=== PATIENT | female | born 1940 | race Caucasian/White ===

== ENCOUNTER 2017-12-25 18:20 | Emergency (ER) | payer OTHER, MEDICARE ==
[2017-12-25 19:35] LABS: Absolute Monocytes 0.5 K/uL (0.1-1.3); Absolute Neutrophil 3.1 K/uL (1.8-8.0); Eosinophils % 6.2 % (0-4.4); Hematocrit 34.5 % (36.0-45.0); Lymphocytes % 19.9 % (15.3-44.8); MCH 28.8 pg (27.0-35.0); MCV 86.7 fL (80-100); MPV 9.1 fL (7.6-11.3); Monocytes % 9.9 % (3.3-12.3); RBC Red Blood Cell Count 3.98 M/uL (3.86-4.86)
[2017-12-25 19:53] LABS: Albumin 3.8 g/dL (3.4-5.0); Bilirubin Direct 0.2 mg/dL (0-0.2); Bilirubin Total 0.9 mg/dL (0.2-1.0); CKMB Creatine Kinase MB 1.6 ng/mL (0.3-3.6); Magnesium 2.1 mg/dL (1.8-2.4); Potassium 3.6 mmol/L (3.5-5.1); Protein, Total 7.1 g/dL (6.4-8.2)
[2017-12-25 19:55] LABS: Protime INR 1.46
[2017-12-25] MEDS ORDERED: FUROSEMIDE 20 MG/ 2ML VIAL ONE (20:09)
--- NOTE | 2017-12-25 20:38 | RAD REPORT ---
EXAM DESCRIPTION: RAD - Chest Single View - 12/25/2017 7:05 pm CLINICAL HISTORY: Shortness of breath COMPARISON: August 02 TECHNIQUE: AP portable chest image was obtained 1853 hours . FINDINGS: No mass, consolidation or acute failure. Interstitial markings are prominent but not clear ly different. Heart size is normal. Vasculature is mildly prominent but stable. No significant failur e or volume overload. No measurable pleural effusion and no pneumothorax. No gross bony abnormality s een. No acute aortic findings suspected. IMPRESSION: No acute cardiopulmonary process. Chest findings are not significantly different from July.
[2017-12-25 20:42] LABS: Urine Blood NEGATIVE (NEG); Urine Glucose NEGATIVE (NEG); Urine Protein NEGATIVE (NEG)
--- NOTE | 2017-12-25 20:45 | RAD REPORT ---
EXAM DESCRIPTION: CT - Chest For Pe Angio - 12/25/2017 8:29 pm COMPARISON: None. TECHNIQUE: Dynamically enhanced 3 mm thick images of the chest were obtained during administration o f approximately 150mL Isovue 370 IV contrast. Coronal and oblique reconstruction images were generate d using MIP protocol and reviewed. Exam utilizes a protocol to evaluate the pulmonary arterial tree. All CT scans are performed using dose optimization technique as appropriate and may include automated exposure control or mA/KV adjustment according to patient size. FINDINGS: No pulmonary emboli are identified. The aorta as imaged shows no acute or suspicious finding. No pericardial thickening or effusion. No infiltrate or mass in the lung parenchyma. Trace right pleural effusion. No pneumothorax. No mediastinal or hilar suspicious masses. No chest wall masses or abnormal axillary lymphadenopathy. Anterior rib fracture changes are seen at the right fourth, fifth and sixth ribs near the costochondr al junction. Similar fracture changes are present at the anterior left third and fourth and fifth rib s. Fractures are probably subacute or even chronic. No pathologic component. Limited imaging of the upper abdomen shows a 5 centimeter left adrenal mass that shows predominantly fat attenuation with a attenuation value far below 0 HU. There is fullness of the right adrenal gland is largest 3 cm in size. This exam is not a complete assessment of abdominal structures or adrenal g lands. IMPRESSION: No pulmonary emboli identified. No infiltrate or mass. Patient has a trace right pleural effusion. Anterior rib fractures near the costochondral junction noted- on the right 4th-6th and left 3rd-5th r ibs. These appear subacute to old in age. Correlation can be made with any localizing symptoms. No pa thologic component. Large 5 centimeter fat attenuation adrenal mass very likely an adrenal adenoma.A 3 centimeter more so lid right adrenal mass is present. Adrenal masses are not fully characterized on this study.
[2017-12-25] MEDS ORDERED: ALBUTEROL 2.5 MG/3 ML NEB SOL ONE (21:13)
[2017-12-25] MEDS ORDERED: IPRATROPIUM BROM 0.5MG/2.5ML ONE (21:13)
--- NOTE | 2017-12-26 00:17 | ER ---
Nurse's Notes [facility] Name: Majo Causey Age: 77 yrs Sex: Female : 1940 Arrival Date: 12/25/2017 Time: 18:22 Bed 23 Private MD: Diagnosis: Dyspnea;Multiple fractures of ribs;Chronic pain syndrome Presentation: 12/25 18:32 Presenting complaint: Patient states: Difficulty breathing since this AM. Transition of aj care: patient was not received from another setting of care. Onset of symptoms was December 25, 2017. Risk Assessment: Do you want to hurt yourself or someone else? Patient reports no desire to harm self or others. Initial Sepsis Screen: Does the patient meet any 2 criteria? No. Patient's initial sepsis screen is negative. Does the patient have a suspected source of infection? No. Patient's initial sepsis screen is negative. Care prior to arrival: None. 18:32 Method Of Arrival: Wheelchair aj 18:32 Acuity: JAGRUTI 3 aj Triage Assessment: 18:36 General: Appears in no apparent distress. comfortable, Behavior is calm, cooperative, aj appropriate for age. Pain: Denies pain. Neuro: Level of Consciousness is awake, alert, obeys commands, Oriented to person, place, time, situation, Appropriate for age. Respiratory: Reports shortness of breath at rest on exertion Airway is patent Respiratory effort is even, unlabored, Respiratory pattern is regular, symmetrical, Onset: The symptoms/episode began/occurred today, the patient has mild shortness of breath. GI: No signs and/or symptoms were reported involving the gastrointestinal system. Derm: Skin is intact, is healthy with good turgor, Skin is pink, warm \T\ dry. normal. Historical: - Allergies: 18:36 No Known Allergies; aj - Home Meds: 18:36 aspirin 81 mg Oral TbEC 1 tab once daily [Active]; carvedilol 6.25 mg Oral tab 1 tab 2 aj times per day [Active]; digoxin 125 mcg Oral tab 1 tab once daily [Active]; duloxetine 60 mg Oral cpDR 1 cap once daily [Active]; Eliquis 5 mg Oral tab 1 tab 2 times per day [Active]; fentanyl 75 mcg/hr Topical pt72 1 patch every 72 hours [Active]; furosemide 40 mg Oral tab 1 tab once daily [Active]; gabapentin 300 mg Oral cap 1 cap 3 times per day [Active]; klorcon twice a day [Active]; lisinopril-hydrochlorothiazide 20-12.5 mg Oral tab 1 tab once daily [Active]; [place] 10-325 mg Oral tab 1 tab every 4 hours [Active]; ropinirole 0.5 mg Oral tab 1 tab twice a day [Active]; Senna Plus 8.6-50 mg Oral tab 2 tabs once daily [Active]; simvastatin 20 mg Oral tab 1 tab once daily [Active]; Synthroid 125 mcg Oral tab 1 tab once daily [Active]; Zofran (as hydrochloride) 4 mg Oral tab 1 tabs 3 times per day [Active]; - PMHx: 18:36 Arthritis; Atrial Fib; Chronic pain; Hypertension; aj - PSHx: 18:36 spinal surgery; Hysterectomy; aj - Immunization history:: Adult Immunizations up to date. - Social history:: Smoking status: Patient/guardian denies using tobacco. - Ebola Screening: : Patient negative for fever greater than or equal to 101.5 degrees Fahrenheit, and additional compatible Ebola Virus Disease symptoms Patient denies exposure to infectious person Patient denies travel to an Ebola-affected area in the 21 days before illness onset No symptoms or risks identified at this time. Screenin:35 Abuse screen: Denies threats or abuse. Nutritional screening: No deficits noted. tl3 Tuberculosis screening: No symptoms or risk factors identified. Fall Risk Fall in past 12 months (25 points). Assessment: 18:35 General: Appears in no apparent distress. well developed, well nourished, Behavior is tl3 calm, cooperative, flat. General: Reports fatigue for felt short of breath this am, pt states that when she feels that way she can usually pull her nares open to better get air. Pain: Denies pain. Neuro: Level of Consciousness is awake, alert, obeys commands, Oriented to person, place, time, situation, Appropriate for age. Cardiovascular: Heart tones S1 S2 Patient's skin is warm and dry. Rhythm is regular. Respiratory: Airway is patent Respiratory effort is even, unlabored, Respiratory pattern is regular, symmetrical, Breath sounds are clear bilaterally. GI: No signs and/or symptoms were reported involving the gastrointestinal system. : No signs and/or symptoms were reported regarding the genitourinary system. EENT: No signs and/or symptoms were reported regarding the EENT system. Derm: No signs and/or symptoms reported regarding the dermatologic system. Musculoskeletal: No signs and/or symptoms reported regarding the musculoskeletal system. 20:00 Reassessment: Patient appears in no apparent distress at this time. No changes from tl3 previously documented assessment. Patient and/or family updated on plan of care and expected duration. Pain level reassessed. Patient is alert, oriented x 3, equal unlabored respirations, skin warm/dry/pink. bedside commode provided for pt. 20:14 Reassessment: patient sent to CT scan. mg2 21:27 Reassessment: Patient appears in no apparent distress at this time. No changes from tl3 previously documented assessment. Patient and/or family updated on plan of care and expected duration. Pain level reassessed. Patient is alert, oriented x 3, equal unlabored respirations, skin warm/dry/pink. Marcos at bedside discussing POC with family. 22:13 Reassessment: Patient appears in no apparent distress at this time. No changes from tl3 previously documented assessment. Patient and/or family updated on plan of care and expected duration. Pain level reassessed. Patient is alert, oriented x 3, equal unlabored respirations, skin warm/dry/pink. pt and bed changed, pt unable to make it to the bedside commode. Dr Serrano \T\ bedside for assessment. 23:10 Reassessment: Patient appears in no apparent distress at this time. No changes from tl3 previously documented assessment. Patient and/or family updated on plan of care and expected duration. Pain level reassessed. Patient is alert, oriented x 3, equal unlabored respirations, skin warm/dry/pink. pt returned from CT, helped to bedside commode. 12/26 00:13 Reassessment: Patient appears in no apparent distress at this time. No changes from tl3 previously documented assessment. Patient and/or family updated on plan of care and expected duration. Pain level reassessed. Patient is alert, oriented x 3, equal unlabored respirations, skin warm/dry/pink. Vital Signs: 12/25 18:36 BP 154 / 88; Pulse 84; Resp 20; Pulse Ox 100% on R/A; Weight 74.84 kg; Height 5 ft. 3 aj in. (160.02 cm); 20:00 BP 150 / 83; Pulse 67; Resp 18; Pulse Ox 95% ; tl3 21:27 BP 136 / 92; Pulse 79; Resp 18; Pulse Ox 100% on Nebulizer Mask; tl3 22:35 BP 148 / 89; Pulse 74; Resp 18; Pulse Ox 100% ; tl3 12/26 00:13 BP 142 / 96; Pulse 82; Resp 18; Pulse Ox 100% on R/A; tl3 12/25 18:36 Body Mass Index 29.23 (74.84 kg, 160.02 cm) aj Vitals: 12/25 20:00 Cardiac Rhythm Assessment. tl3 ED Course: 18:22 Patient arrived in ED. mr 18:34 Triage completed. aj 18:34 Marcos Rivas PA is PHCP. [facility] 18:34 Jaxson Lassiter MD is Attending Physician. jm 18:35 Zainab Wakefield, JOSÉ MIGUEL is Primary Nurse. tl3 18:35 Patient has correct armband on for positive identification. Bed in low position. Call tl3 light in reach. Side rails up X2. Adult w/ patient. Pulse ox on. NIBP on. 18:35 No provider procedures requiring assistance completed. tl3 18:36 Arm band placed on right wrist. Patient placed in an exam room. aj 19:04 XRAY Chest (1 view) In Process Unspecified. EDMS 19:16 EKG done, by ED staff. tl3 19:27 Initial lab(s) drawn, by wi, sent to lab. Inserted saline lock: 22 gauge in right ks6 antecubital area, using aseptic technique. Blood collected. 19:50 Notified Nurse Practitioner and/or Physician Patient Service Specialist of a critical lab result(s), bb D-Dimer of 7[address] J. Rob CHANDLER notified. 20:29 CT Chest For PE Angio In Process Unspecified. EDMS 20:30 CT completed. Patient moved to CT via stretcher. Patient moved back from CT. cw1 22:37 Cricket Centeno MD is Attending Physician. [facility] 22:53 CT completed. Patient moved to CT via wheelchair. Patient moved back from CT. cw1 23:08 CT Head C Spine In Process Unspecified. EDMS 12/26 00:13 IV discontinued, intact, bleeding controlled, No redness/swelling at site. Pressure tl3 dressing applied. Administered Medications: 12/25 20:09 Drug: Lasix 20 mg Route: IVP; Site: right antecubital; mg2 21:08 Follow up: Response: No adverse reaction tl3 21:33 Drug: DuoNeb (3:1) (2.5 mg - 0.5 mg) 3 ml Route: Nebulizer; tl3 12/26 00:37 Follow up: Response: No adverse reaction tl3 Outcome: 00:13 Discharged to home via wheelchair. tl3 00:13 Condition: stable 00:13 Discharge instructions given to patient, family, Instructed on discharge instructions, follow up and referral plans. medication usage, Demonstrated understanding of instructions, follow-up care, medications. 00:17 Discharge ordered by . 00:38 Patient left the ED. tl3 Signatures: Dispatcher [employer] EDMS Yoly Martinez, RN RN Marcos Eugene PA PA jmm Rivera, Maria mr Lindsay Gomez, Crystal Metzger RN 1 Cricket Centeno MD MD gs Lowrey, Tammy, RN RN tl3 Sheldon Chen RN RN mg2 Frederic Cheung ks6
--- NOTE | 2017-12-26 00:18 | EDPHYS ---
Physician Documentation [facility] Name: Majo Causey Age: 77 yrs Sex: Female : 1940 Arrival Date: 12/25/2017 Time: 18:22 Bed 23 Private MD: ED Physician Cricket Centeno HPI: 12/25 18:49 This 77 yrs old Female presents to ER via Wheelchair with complaints of jmm Breathing Difficulty. 18:49 The patient has shortness of breath at rest. Onset: The symptoms/episode began/occurred jmm gradually, this morning. Duration: The symptoms are continuous. The patient's shortness of breath is aggravated by nothing, is alleviated by nothing. Associated signs and symptoms: Pertinent negatives: chest pain. This is a 77 year old female with a history of atrial fibrillation, chronic pain, fibromyalgia that presents to the ED with shortness of breath beginning earlier today. Patient states symptoms are no worsened with exertion. Patient denies chest pain. . Historical: - Allergies: 18:36 No Known Allergies; aj - Home Meds: 18:36 aspirin 81 mg Oral TbEC 1 tab once daily [Active]; carvedilol 6.25 mg Oral tab 1 tab 2 aj times per day [Active]; digoxin 125 mcg Oral tab 1 tab once daily [Active]; duloxetine 60 mg Oral cpDR 1 cap once daily [Active]; Eliquis 5 mg Oral tab 1 tab 2 times per day [Active]; fentanyl 75 mcg/hr Topical pt72 1 patch every 72 hours [Active]; furosemide 40 mg Oral tab 1 tab once daily [Active]; gabapentin 300 mg Oral cap 1 cap 3 times per day [Active]; klorcon twice a day [Active]; lisinopril-hydrochlorothiazide 20-12.5 mg Oral tab 1 tab once daily [Active]; [place] 10-325 mg Oral tab 1 tab every 4 hours [Active]; ropinirole 0.5 mg Oral tab 1 tab twice a day [Active]; Senna Plus 8.6-50 mg Oral tab 2 tabs once daily [Active]; simvastatin 20 mg Oral tab 1 tab once daily [Active]; Synthroid 125 mcg Oral tab 1 tab once daily [Active]; Zofran (as hydrochloride) 4 mg Oral tab 1 tabs 3 times per day [Active]; - PMHx: 18:36 Arthritis; Atrial Fib; Chronic pain; Hypertension; aj - PSHx: 18:36 spinal surgery; Hysterectomy; aj - Immunization history:: Adult Immunizations up to date. - Social history:: Smoking status: Patient/guardian denies using tobacco. - Ebola Screening: : Patient negative for fever greater than or equal to 101.5 degrees Fahrenheit, and additional compatible Ebola Virus Disease symptoms Patient denies exposure to infectious person Patient denies travel to an Ebola-affected area in the 21 days before illness onset No symptoms or risks identified at this time. ROS: 18:49 Constitutional: Negative for fever, chills, and weight loss, Eyes: Negative for injury, jmm pain, redness, and discharge, Cardiovascular: Negative for chest pain, palpitations, and edema. 18:49 Abdomen/GI: Negative for abdominal pain, nausea, vomiting, diarrhea, and constipation, Back: Negative for injury and pain, Neuro: Negative for headache, weakness, numbness, tingling, and seizure. 18:49 Respiratory: Positive for shortness of breath. 18:49 All other systems are negative. Exam: 18:49 Head/Face: atraumatic. Eyes: EOMI, no conjunctival erythema appreciated Chest/axilla: jmm Normal chest wall appearance and motion. 18:49 Constitutional: The patient appears in no acute distress, alert, awake. 18:49 Cardiovascular: Rate: normal, Rhythm: irregularly irregular, Pulses: no pulse deficits are appreciated. 18:49 Respiratory: the patient does not display signs of respiratory distress, Respirations: normal, Breath sounds: are clear throughout. 18:49 Musculoskeletal/extremity: ROM: intact in all extremities. 18:49 Musculoskeletal/extremity: No edema noted, full dorsalis pedis pulse. 18:49 Skin: Appearance: Color: normal in color. 18:49 Neuro: Orientation: is normal, Mentation: is normal, Memory: is normal. 18:49 Psych: Behavior/mood is pleasant, cooperative. Vital Signs: 18:36 BP 154 / 88; Pulse 84; Resp 20; Pulse Ox 100% on R/A; Weight 74.84 kg; Height 5 ft. 3 aj in. (160.02 cm); 20:00 BP 150 / 83; Pulse 67; Resp 18; Pulse Ox 95% ; tl3 21:27 BP 136 / 92; Pulse 79; Resp 18; Pulse Ox 100% on Nebulizer Mask; tl3 22:35 BP 148 / 89; Pulse 74; Resp 18; Pulse Ox 100% ; tl3 12/26 00:13 BP 142 / 96; Pulse 82; Resp 18; Pulse Ox 100% on R/A; tl3 12/25 18:36 Body Mass Index 29.23 (74.84 kg, 160.02 cm) aj MDM: 12/25 18:45 Patient medically screened. [facility] 21:32 Data reviewed: vital signs, nurses notes, lab test result(s), EKG, radiologic studies, [facility] CT scan. ED course: I discussed the patient with Dr. Serrano whom will visit with the patient in the ED. . 22:32 ED course: After evaluation of the patient by Dr. Serrano it was revealed the patient [facility] had fallen 1 week prior. The patient currently takes eliquis. Ct Brain imaging ordered. . 22:37 Transition of care: After a detail discussion of the patient's case, care is [facility] transferred to Cricket Centeno MD. 12/26 00:15 ED course: PT SEEN AND EXAMINED BETTER AFTER NEB, CT HEAD NAD, DISCUSSED WITH FAMILY AT gs LENGTH EXCESSIVE OPIATE USE CAUSING REPETITIVE FALLS WHILE BEING ON BLOOD THINNERS, SON WILL TAKE TO PCP TO DISCUSS. 12/25 18:46 Order name: Basic Metabolic Panel; Complete Time: 19:57 [facility] 12/25 18:46 Order name: CBC with Diff; Complete Time: 19:57 [facility] 12/25 18:46 Order name: Ckmb; Complete Time: 19:57 [facility] 12/25 18:46 Order name: CPK; Complete Time: 19:57 [facility] 12/25 18:46 Order name: LFT's; Complete Time: 19:57 [facility] 12/25 18:46 Order name: Magnesium; Complete Time: 19:57 [facility] 12/25 18:46 Order name: NT PRO-BNP; Complete Time: 19:57 [facility] 12/25 18:46 Order name: PT-INR; Complete Time: 20:02 [facility] 12/25 18:46 Order name: Ptt, Activated; Complete Time: 20:02 [facility] 12/25 18:46 Order name: Troponin (emerg Dept Use Only); Complete Time: 19:57 [facility] 12/25 18:46 Order name: XRAY Chest (1 view); Complete Time: 20:51 [facility] 12/25 19:13 Order name: D-Dimer; Complete Time: 19:57 [facility] 12/25 19:58 Order name: CT Chest For PE Angio; Complete Time: 20:51 [facility] 12/25 20:17 Order name: Urine Dipstick--Ancillary (enter results); Complete Time: 20:51 [facility] 12/25 18:46 Order name: EKG; Complete Time: 18:47 [facility] 12/25 18:46 Order name: Cardiac monitoring; Complete Time: 19:28 [facility] 12/25 18:46 Order name: EKG - Nurse/Tech; Complete Time: 19:28 [facility] 12/25 18:46 Order name: IV Saline Lock; Complete Time: 19:28 [facility] 12/25 18:46 Order name: Labs collected and sent; Complete Time: 19:28 [facility] 12/25 18:46 Order name: O2 Per Protocol; Complete Time: 19:28 [facility] 12/25 18:46 Order name: O2 Sat Monitoring; Complete Time: 19:28 [facility] 12/25 18:46 Order name: Urine Dipstick-Ancillary (obtain specimen); Complete Time: 20:13 [facility] 12/25 22:32 Order name: CT Head C Spine [facility] Administered Medications: 12/25 20:09 Drug: Lasix 20 mg Route: IVP; Site: right antecubital; mg2 21:08 Follow up: Response: No adverse reaction tl3 21:33 Drug: DuoNeb (3:1) (2.5 mg - 0.5 mg) 3 ml Route: Nebulizer; tl3 12/26 00:37 Follow up: Response: No adverse reaction tl3 Disposition: 00:15 Co-signature as Attending Physician, Cricket Centeno MD. Disposition: 12/26/17 00:17 Discharged to Home. Impression: Dyspnea, Multiple fractures of ribs, Chronic pain syndrome. - Condition is Stable. - Discharge Instructions: Shortness of Breath, [id number], Incentive Spirometer. - Medication Reconciliation Form, Thank You Letter, Antibiotic Education, Prescription Opioid Use form. - Follow up: Private Physician; When: 1 - 2 days; Reason: Re-evaluation by your physician. Signatures: Dispatcher [employer] EDMS Martinez, Yoly, RN RN aj Jaxson Lassiter MD MD cha Mickail, Joel, PA PA jmm Starr, Gregory, MD MD gs Lowrey, Tammy, RN RN tl3 Sheldon Chen RN RN mg2 Corrections: (The following items were deleted from the chart) 00:38 00:17 12/26/2017 00:17 Discharged to Home. Impression: Dyspnea; Multiple fractures of tl3 ribs; Chronic pain syndrome. Condition is Stable. Forms are Medication Reconciliation Form, Thank You Letter, Antibiotic Education, Prescription Opioid Use. Follow up: Private Physician; When: 1 - 2 days; Reason: Re-evaluation by your physician. gs
[2017-12-26 00:44] VITALS: O2SAT 100
[2017-12-26 00:46] VITALS: BP 142/96
--- NOTE | 2017-12-26 07:40 | EKG ---
Test Date: 2017-12-25 Test Time: 19:04:59 Photographer Still: NADIA MEASUREMENT RESULTS: Intervals: Rate: 76 SD: QRSD: 70 QT: 384 QTc: 432 [place]: P: SD: QRS: -12 T: 0 INTERPRETIVE STATEMENTS: Atrial fibrillation Nonspecific ST abnormality, probably digitalis effect Abnormal ECG Compared to ECG 08/02/2017 13:03:46 ST (T wave) deviation now present Myocardial infarct finding no longer present Electronically Signed On 12-26-17 07:39:04 CDT by Forrest Lema
--- NOTE | 2017-12-26 08:44 | RAD REPORT ---
EXAM DESCRIPTION: CT - [id number] - 12/26/2017 4:42 am CLINICAL HISTORY: Trauma, head and neck injury. fall, head injury COMPARISON: No comparisons TECHNIQUE: Axial 5 mm thick images of the head were obtained. Axial 2 mm thick images of the cervical spine were obtained with sagittal and coronal reconstruction images generated and reviewed. All CT scans are performed using dose optimization technique as appropriate and may include automated exposure control or mA/KV adjustment according to patient size. FINDINGS: CT HEAD WITHOUT CONTRAST: No acute hemorrhage, hydrocephalus or extra-axial collection is identified.Mild generalized brain atr ophy is present with mild periventricular and deep white matter chronic microvascular ischemic change s.No areas of brain edema or midline shift. The paranasal sinuses and mastoids are clear.The calvarium is intact. CT CERVICAL SPINE WITHOUT CONTRAST: No fracture or subluxation.Lower cervical degenerative changes are noted, most notable at C5-6.No pre vertebral soft tissues swelling is identified. IMPRESSION: No acute intracranial or cervical spine findings. Moderate lower cervical degenerative change.
== END 2017-12-26 00:38 | disposition home or self-care (01) ==
LOC: ER 18:20
DX: R06.00 Dyspnea, unspecified (principal); S22.49XA Multiple fractures of ribs, unspecified side, initial encounter for closed fracture; G89.4 Chronic pain syndrome; I10 Essential (primary) hypertension; X58.XXXA Exposure to other specified factors, initial encounter; Y93.9 Activity, unspecified; Y92.9 Unspecified place or not applicable; Y99.9 Unspecified external cause status
CPT/HCPCS: 36415; 70450; 71045; 71275; 72125; 80048; 80076; 81003; 82550; 82553; 83735; 83880; 84484; 85025; 85379; 85610; 85730; 93005; 94640; 96374; 99285; J1940; Q9967

== ENCOUNTER 2018-03-01 11:34 | Inpatient (IN) | payer OTHER, MEDICARE ==
[2018-03-01 12:02] LABS: Absolute Lymphocytes (CBC) 1.5 K/uL (0.7-4.9); Absolute Neutrophil 14.5 K/uL (1.8-8.0); Basophils % 0.3 % (0-1.3); Eosinophils % 2.7 % (0-4.4); Hematocrit 36.8 % (36.0-45.0); Lymphocytes % 8.6 % (15.3-44.8); MCV 85.2 fL (80-100); MPV 9.4 fL (7.6-11.3); Monocytes % 5.9 % (3.3-12.3); RBC Red Blood Cell Count 4.31 M/uL (3.86-4.86)
[2018-03-01 12:06] LABS: Protime INR 1.53
[2018-03-01 12:14] LABS: Potassium 3.3 mmol/L (3.5-5.1)
--- NOTE | 2018-03-01 12:49 | RAD REPORT ---
EXAM DESCRIPTION: RAD - Hip Left 2 View - 03/01/2018 12:34 pm CLINICAL HISTORY: Fall, left hip pain COMPARISON: None FINDINGS: AP pelvis, left hip and left femur - multiple projections. Subcapital fracture of the proximal left femur is seen with mild varus angulation. No dislocation is evident.
--- NOTE | 2018-03-01 12:56 | RAD REPORT ---
EXAM DESCRIPTION: RAD - Femur Left - 03/01/2018 12:34 pm CLINICAL HISTORY: Fall, left hip pain. COMPARISON: None FINDINGS: AP pelvis, left hip and left femur - multiple projections. Subcapital fracture of the proximal left femur is seen with mild varus angulation. No dislocation is evident.
--- NOTE | 2018-03-01 12:57 | RAD REPORT ---
EXAM DESCRIPTION: RAD - Pelvis - 03/01/2018 12:34 pm CLINICAL HISTORY: Fall, left hip pain. COMPARISON: None FINDINGS: AP pelvis, left hip and left femur - multiple projections. Subcapital fracture of the proximal left femur is seen with mild varus angulation. No dislocation is evident.
[2018-03-01] MEDS ORDERED: MORPHINE 4 MG/ML SYR ONE ×3 (13:02→14:11)
--- NOTE | 2018-03-01 13:10 | EDPHYS ---
Physician Documentation [facility] Name: Majo Causey Age: 77 yrs Sex: Female : 1940 Arrival Date: 03/01/2018 Time: 11:37 Bed 4 Private MD: ED Physician Leander Goodwin HPI: 03/01 11:38 This 77 yrs old Female presents to ER via Unassigned with complaints of Fall rn Injury. 11:38 Details of fall: The patient fell from an upright position. Onset: The symptoms/episode rn began/occurred just prior to arrival. Associated injuries: The patient sustained left hip. Severity of symptoms: At their worst the symptoms were moderate, in the emergency department the symptoms are unchanged. The patient has not experienced similar symptoms in the past. The patient has not recently seen a physician. Reports on back patio, fell backward, lost her balance, no LOC, only injury is left hip, unable to get up, 100mcg fentanyl per EMS. . Historical: - Allergies: 12:20 No Known Allergies; sg - PMHx: 12:20 Arthritis; Atrial Fib; Chronic pain; Hypertension; sg - PSHx: 12:20 spinal surgery; Hysterectomy; sg - Immunization history:: Adult Immunizations unknown. - Immunization history: Last tetanus immunization: - up to date. - Family history:: not pertinent. - Social history:: Smoking status: Patient/guardian denies using tobacco. - Ebola Screening: : No symptoms or risks identified at this time. - Hospitalizations: : No recent hospitalization is reported. ROS: 11:38 Constitutional: Negative for fever, chills, and weight loss, Eyes: Negative for injury, rn pain, redness, and discharge, Neck: Negative for injury, pain, and swelling, Cardiovascular: Negative for chest pain, palpitations, and edema, Respiratory: Negative for shortness of breath, cough, wheezing, and pleuritic chest pain, Abdomen/GI: Negative for abdominal pain, nausea, vomiting, diarrhea, and constipation, MS/Extremity: + left hip pain Skin: Negative for injury, rash, and discoloration, Neuro: Negative for headache, numbness, tingling, and seizure. Exam: 11:38 Constitutional: Thin female, legs flexed and appears uncomfortable Head/Face: rn Normocephalic, atraumatic. Eyes: Pupils equal round and reactive to light, extra-ocular motions intact. Lids and lashes normal. Conjunctiva and sclera are non-icteric and not injected. Cornea within normal limits. Periorbital areas with no swelling, redness, or edema. Neck: Trachea midline, no thyromegaly or masses palpated, and no cervical lymphadenopathy. Supple, full range of motion without nuchal rigidity, or vertebral point tenderness. No Meningismus. Cardiovascular: Regular rate and rhythm with a normal S1 and S2. No gallops, murmurs, or rubs. Normal PMI, no JVD. No pulse deficits. Respiratory: Lungs have equal breath sounds bilaterally, clear to auscultation and percussion. No rales, rhonchi or wheezes noted. No increased work of breathing, no retractions or nasal flaring. Abdomen/GI: Soft, non-tender, with normal bowel sounds. No distension or tympany. No guarding or rebound. No evidence of tenderness throughout. Back: No spinal tenderness. No costovertebral tenderness. Full range of motion. MS/ Extremity: Pulses equal, no cyanosis. + painful ROM left hip with bony tenderness, unable to straighten leg Neuro: Awake and alert, GCS 15, oriented to person, place, time, and situation. Cranial nerves II-XII grossly intact. Motor strength 5/5 in all extremities. Sensory grossly intact. Vital Signs: 11:40 BP 140 / 61; Pulse 86; Resp 14; Temp 98.7; Pulse Ox 100% on R/A; Pain 8/10; hb 12:20 BP 140 / 61; Pulse 86; Resp 19; Pulse Ox 100% on R/A; sg 13:30 BP 147 / 77; Pulse 83; Resp 17; Pulse Ox 100% on R/A; dh3 14:30 BP 157 / 63; Pulse 94; Resp 16; Pulse Ox 100% on R/A; dh3 Fred Coma Score: 13:30 Eye Response: spontaneous(4). Verbal Response: oriented(5). Motor Response: obeys sg commands(6). Total: 15. 14:30 Eye Response: spontaneous(4). Verbal Response: oriented(5). Motor Response: obeys sg commands(6). Total: 15. Trauma Score (Adult): 11:40 Eye Response: spontaneous(1); Verbal Response: oriented(1); Motor Response: obeys hb commands(2); Systolic BP: > 89 mm Hg(4); Respiratory Rate: 10 to 29 per min(4); [place] Score: 15; Trauma Score: 12 12:20 Eye Response: spontaneous(1); Verbal Response: oriented(1); Motor Response: obeys hb commands(2); Systolic BP: > 89 mm Hg(4); Respiratory Rate: 10 to 29 per min(4); [place] Score: 15; Trauma Score: 12 13:30 Eye Response: spontaneous(1); Verbal Response: oriented(1); Motor Response: obeys sg commands(2); Systolic BP: > 89 mm Hg(4); Respiratory Rate: 10 to 29 per min(4); [place] Score: 15; Trauma Score: 12 14:30 Eye Response: spontaneous(1); Verbal Response: oriented(1); Motor Response: obeys sg commands(2); Systolic BP: > 89 mm Hg(4); Respiratory Rate: 10 to 29 per min(4); Fred Score: 15; Trauma Score: 12 MDM: 11:37 Patient medically screened. rn 13:07 ED course: COnsulted Dr. Reynoso, will consult when admitted to hospitalist. . rn 03/01 11:38 Order name: CBC with Diff; Complete Time: 12:40 rn 03/01 11:38 Order name: Basic Metabolic Panel; Complete Time: 12:40 rn 03/01 11:38 Order name: PT-INR; Complete Time: 12:40 rn 03/01 11:38 Order name: Ptt, Activated; Complete Time: 12:40 rn 03/01 14:28 Order name: Urine Dipstick--Ancillary (enter results) bd 03/01 14:58 Order name: Urine Dipstick-Ancillary EDMS 03/01 11:38 Order name: IV Start; Complete Time: 12:59 rn 03/01 11:38 Order name: EKG; Complete Time: 11:39 rn 03/01 11:38 Order name: XRAY Pelvis; Complete Time: 13:02 rn 03/01 11:38 Order name: XRAY Hip LEFT 2 view; Complete Time: 12:56 rn 03/01 11:38 Order name: XRAY Femur LEFT; Complete Time: 13:02 rn 03/01 11:38 Order name: EKG - Nurse/Tech; Complete Time: 12:59 rn 03/01 11:38 Order name: NPO; Complete Time: 12:54 rn 03/01 14:01 Order name: Burton; Complete Time: 14:36 sg Administered Medications: 12:59 Drug: morphine 2 mg Route: IVP; Site: right antecubital; hb 13:25 Drug: morphine 2 mg Route: IVP; Site: right antecubital; hb 14:50 Drug: morphine 2 mg Route: IVP; Site: right antecubital; sg Disposition: 03/01/18 13:09 Hospitalization ordered by Yasmin Caro for Inpatient Admission. Preliminary diagnosis is Subcapital left femur fracture. - Bed requested for Telemetry/MedSurg (Inpatient). - Status is Inpatient Admission. sg - Condition is Stable. - Problem is new. - Symptoms have improved. UTI on Admission? No Signatures: Dispatcher [employer] EDMS Majo Rose Steven, RN RN sg Leander Goodwin MD MD rn Baxter, Heather, RN RN Corrections: (The following items were deleted from the chart) 14:20 13:09 Hospitalization Ordered by Yasmin Caro MD for Inpatient Admission. Preliminary bd diagnosis is Subcapital left femur fracture. Bed requested for Telemetry/MedSurg (Inpatient). Status is Inpatient Admission. Condition is Stable. Problem is new. Symptoms have improved. UTI on Admission? No. rn 15:19 14:20 03/01/2018 13:09 Hospitalization Ordered by Yasmin Caro MD for Inpatient sg Admission. Preliminary diagnosis is Subcapital left femur fracture. Bed requested for Telemetry/MedSurg (Inpatient). Status is Inpatient Admission. Condition is Stable. Problem is new. Symptoms have improved. UTI on Admission? No. bd
--- NOTE | 2018-03-01 13:10 | ER ---
Nurse's Notes [facility] Name: Majo Causey Age: 77 yrs Sex: Female : 1940 Arrival Date: 03/01/2018 Time: 11:37 Bed 4 Private MD: Diagnosis: Subcapital left femur fracture Presentation: 03/01 11:37 Presenting complaint: EMS states: Mechanical fall from standing while on back porch, hb c/o left hip pain 03/15. Limited ROM in left hip. 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 Care prior to arrival: Medication(s) given: Fentanyl 100mcg IV initiated. 20 GA, in the left forearm. Mechanism of Injury: Fall from standing position. Trauma event details: Injury occurred in the [facility], Injury occurred: at home. Injury occurred: March 01, 2018. 11:37 Acuity: JAGRUTI 2 hb 11:37 Method Of Arrival: EMS: [facility] hb 11:45 Transition of care: patient was not received from another setting of care. Onset of hb symptoms was March 01, 2018. Risk Assessment: Do you want to hurt yourself or someone else? Patient reports no desire to harm self or others. Initial Sepsis Screen: Does the patient meet any 2 criteria? No. Patient's initial sepsis screen is negative. Does the patient have a suspected source of infection? No. Patient's initial sepsis screen is negative. Trauma Activation: Alert Physician: ED Physician; Name: Dr. Goodwin; Notified At: 11:37; Arrived At: 11:37 Physician: General Surgeon; Name: ; Notified At: 11:37; Arrived At: Physician: Radiology; Name: ; Notified At: 11:37; Arrived At: Physician: Respiratory; Name: ; Notified At: 11:37; Arrived At: Physician: Lab; Name: ; Notified At: 11:37; Arrived At: Historical: - Allergies: 12:20 No Known Allergies; sg - PMHx: 12:20 Arthritis; Atrial Fib; Chronic pain; Hypertension; sg - PSHx: 12:20 spinal surgery; Hysterectomy; sg - Immunization history:: Adult Immunizations unknown. - Immunization history: Last tetanus immunization: - up to date. - Family history:: not pertinent. - Social history:: Smoking status: Patient/guardian denies using tobacco. - Ebola Screening: : No symptoms or risks identified at this time. - Hospitalizations: : No recent hospitalization is reported. Screenin:21 Abuse screen: Denies threats or abuse. Denies injuries from another. Nutritional sg screening: No deficits noted. Tuberculosis screening: No symptoms or risk factors identified. Never had TB. Fall Risk None identified. Primary Survey: 11:38 A: Airway: patent, No supplemental oxygen in use on arrival. Oral cavity: clear, hb Trachea midline. Breathing/Chest: Respiratory pattern: regular, Respiratory effort: spontaneous, unlabored, Breath sounds: clear, bilaterally. Chest inspection: symmetrical rise and fall of the chest. Circulation: Pulses: palpable . Skin color: pink, Skin temperature: warm, dry. Disability Alert. 12:30 Reassessment Airway Airway Patent Breathing/Chest Respiratory pattern Regular hb Respiratory effort Spontaneous Unlabored Breath sounds Clear Chest inspection Symmetrical Circulation Pulses Palpable Color [place] Temperature Warm Dry Disability Alert. Secondary Survey: 11:40 HEENT: No deficits noted. Gastrointestinal: No deficits noted. : No deficits noted. hb Musculoskeletal: Range of motion: limited in left hip. Assessment: 11:47 General: Appears in no apparent distress. uncomfortable, Behavior is calm, cooperative. hb Pain: Pain currently is 8 out of 10 on a pain scale. Neuro: Level of Consciousness is awake, alert, obeys commands, Oriented to person, place, time, situation. Cardiovascular: Heart tones S1 S2 present Capillary refill < 3 seconds Patient's skin is warm and dry. Respiratory: Airway is patent Trachea midline Respiratory effort is even, unlabored, Respiratory pattern is regular, symmetrical, Breath sounds are clear bilaterally. GI: No signs and/or symptoms were reported involving the gastrointestinal system. : No signs and/or symptoms were reported regarding the genitourinary system. EENT: No signs and/or symptoms were reported regarding the EENT system. Derm: No signs and/or symptoms reported regarding the dermatologic system. Skin is pink, warm \T\ dry. Musculoskeletal: Range of motion: limited in left hip. 12:19 Reassessment: xray at bedside at this time. sg 12:20 Reassessment: Patient appears in no apparent distress at this time. No changes from hb previously documented assessment. Patient and/or family updated on plan of care and expected duration. Pain level reassessed. Patient is alert, oriented x 3, equal unlabored respirations, skin warm/dry/pink. 12:55 Reassessment: Pt c/o pain 03/15, Dr. Goodwin notified morphine 2mg ivp administered as hb ordered. VSS. Family remains at bedside. 13:25 Reassessment: Pt c/o pain 03/15, Christa Linda notified, repeat morphine administered as hb ordered. 14:30 Reassessment: Patient appears in no apparent distress at this time. Patient and/or sg family updated on plan of care and expected duration. Pain level reassessed. Patient is alert, oriented x 3, equal unlabored respirations, skin warm/dry/pink. pt reports no change in pain, orders received to repeat morphine as administered, pt medicated, see EMAR. pt awaiting a bed assignment at this time, will continue to monitor Patient states symptoms have not improved. Vital Signs: 11:40 BP 140 / 61; Pulse 86; Resp 14; Temp 98.7; Pulse Ox 100% on R/A; Pain 8/10; hb 12:20 BP 140 / 61; Pulse 86; Resp 19; Pulse Ox 100% on R/A; sg 13:30 BP 147 / 77; Pulse 83; Resp 17; Pulse Ox 100% on R/A; dh3 14:30 BP 157 / 63; Pulse 94; Resp 16; Pulse Ox 100% on R/A; dh3 [place] Coma Score: 13:30 Eye Response: spontaneous(4). Verbal Response: oriented(5). Motor Response: obeys sg commands(6). Total: 15. 14:30 Eye Response: spontaneous(4). Verbal Response: oriented(5). Motor Response: obeys sg commands(6). Total: 15. Trauma Score (Adult): 11:40 Eye Response: spontaneous(1); Verbal Response: oriented(1); Motor Response: obeys hb commands(2); Systolic BP: > 89 mm Hg(4); Respiratory Rate: 10 to 29 per min(4); Fred Score: 15; Trauma Score: 12 12:20 Eye Response: spontaneous(1); Verbal Response: oriented(1); Motor Response: obeys hb commands(2); Systolic BP: > 89 mm Hg(4); Respiratory Rate: 10 to 29 per min(4); [place] Score: 15; Trauma Score: 12 13:30 Eye Response: spontaneous(1); Verbal Response: oriented(1); Motor Response: obeys sg commands(2); Systolic BP: > 89 mm Hg(4); Respiratory Rate: 10 to 29 per min(4); [place] Score: 15; Trauma Score: 12 14:30 Eye Response: spontaneous(1); Verbal Response: oriented(1); Motor Response: obeys sg commands(2); Systolic BP: > 89 mm Hg(4); Respiratory Rate: 10 to 29 per min(4); [place] Score: 15; Trauma Score: 12 ED Course: 11:37 Patient arrived in ED. hb 11:37 Leander Goodwin MD is Attending Physician. rn 11:40 Triage completed. hb 11:45 Arm band placed on right wrist. hb 12:00 Thermoregulation: warm blanket given to patient. hb 12:00 Patient maintains SpO2 saturation greater than 95% on room air. sg 12:03 Shayne Melendez, RN is Primary Nurse. sg 12:04 Initial lab(s) drawn, by nv, sent to lab. Inserted saline lock: 20 gauge in right sg antecubital area, using aseptic technique. Blood collected. 12:05 Patient has correct armband on for positive identification. Bed in low position. Call sg light in reach. Side rails up X2. equipment monitor phototypesetting on. Pulse ox on. NIBP on. Warm blanket given. Head of bed elevated. Bath given. Cleaned of incontinence. Linen changed. 12:18 Awaiting radiology results. sg 12:34 XRAY Pelvis In Process Unspecified. EDMS 12:34 XRAY Hip LEFT 2 view In Process Unspecified. EDMS 12:34 XRAY Femur LEFT In Process Unspecified. EDMS 12:39 EKG done, by sonography technologist. reviewed by Leander Goodwin MD. at1 13:08 Yasmin Caro MD is Hospitalizing Provider. rn 14:20 Burton cath inserted, using sterile technique, 18 Fr., by resort desk clerk, balloon inflated, to sg gravity drainage, urine specimen collected. returned clear yellow urine. Patient tolerated well. 14:54 No provider procedures requiring assistance completed. Patient admitted, IV remains in sg place. intact, No redness/swelling at site. Administered Medications: 12:59 Drug: morphine 2 mg Route: IVP; Site: right antecubital; hb 13:25 Drug: morphine 2 mg Route: IVP; Site: right antecubital; hb 14:50 Drug: morphine 2 mg Route: IVP; Site: right antecubital; sg Output: 14:30 Urine: 250ml (Burton); Total: 250ml. sg Outcome: 13:09 Decision to Hospitalize by Provider. rn 14:53 Admitted to Med/surg accompanied by tech, family with patient, via stretcher, room 208, sg with chart, Report called to Calos VALDEZ 14:53 Condition: stable 14:53 Instructed on the need for admit, safety practices, Demonstrated understanding of instructions. 15:10 Patient's length of stay in the Emergency Department was greater than 2 hours. sg Patient's length of stay was extended due to staffing issues within the emergency department. 15:19 Patient left the ED. sg Signatures: Dispatcher [employer] EDMS Shayne Melendez RN JOSÉ MIGUEL Leander Goodwin MD MD rn Gonzales, Amanda, securities and real estate director EKG Tat1 Audrey Ren RN RN Clayton, Althea 3
--- NOTE | 2018-03-01 13:29 | EKG ---
Test Date: 2018-03-01 Test Time: 12:37:55 Podiatric Surgeon: SAMANTHA MEASUREMENT RESULTS: Intervals: Rate: 80 ME: QRSD: 76 QT: 400 QTc: 461 [place]: P: ME: QRS: 42 T: 59 INTERPRETIVE STATEMENTS: Atrial fibrillation Prolonged QT Abnormal ECG Compared to ECG 12/25/2017 19:04:59 Prolonged QT interval now present ST (T wave) deviation no longer present Electronically Signed On 03-01-18 13:29:00 CDT by Forrest Lema
--- NOTE | 2018-03-01 14:48 | P.HP ---
Certification for Inpatient Patient admitted to: Inpatient With expected LOS: >2 Midnights Patient will require the following post-hospital care: None Practitioner: I am a practitioner with admitting privileges, knowledge of patient current condition, hospital course, and medical plan of care. Services: Services provided to patient in accordance with Admission requirements found in Title 42 Section 412.3 of the Code of Federal Regulations Patient History Date of Service: 03/01/18 Primary Care Provider: Unknown Reason for admission: Fall History of Present Illness: 77 y/o F with NF2, afib and HTN presented to the ER after having Mechanical Fall at the house. Pt was doing well overall and than while on the porch today, she slipped and landed on her left side. She was not able to get up from the groung and had to call family and ems to bring her to the hospital. Pt denies having any CP, SOB, Chillis, Fever, N/V and abd pain. No complains to offer In the ER pt was found to have Left hip fracture and was admitted for further care. Allergies No Known Allergies Allergy (Verified 03/01/18 15:21) Home Medications: Gabapentin [Neurontin*] 300 mg PO TID 08/02/17 Hydrocodone Bit/Acetaminophen [Hydrocodon-Acetaminophn 10-325] 1 each PO Q4H PRN 08/02/17 Levothyroxine [Synthroid*] 125 mcg PO BEDTIME 08/02/17 Ropinirole HCl [Requip] 0.5 mg PO TID 08/02/17 Furosemide 40 mg PO DAILY #30 tablet 08/05/17 Apixaban [Eliquis] 5 mg PO BID 03/01/18 Aspirin 81 mg PO BEDTIME 03/01/18 Carvedilol 6.25 mg PO BID 03/01/18 Docusate/Senna [Senokot-S] 1 tab PO BIDP PRN 03/01/18 Duloxetine HCl [Cymbalta] 30 mg PO DAILY 03/01/18 Lisinopril/Hydrochlorothiazide [Lisinopril-Hctz 20-12.5 mg Tab] 1 each PO DAILY 03/01/18 Potassium Chloride 10 meq PO BEDTIME 03/01/18 - Past Medical/Surgical History Diabetic: No -: Atrial Fibrillation -: HTN -: arthritis -: chronic pain -: hysterectomy -: spinal surgery - Social History Alcohol use: No CD- Drugs: No Caffeine use: No Review of Systems 10-point ROS is otherwise unremarkable Physical Examination - Physical Exam General: Alert, In no apparent distress, Other (Neurofibromatosis noted ) HEENT: Atraumatic, PERRLA, Mucous membr. moist/pink, EOMI, Sclerae nonicteric Neck: Supple, 2+ carotid pulse no bruit, No LAD, Without JVD or thyroid abnormality Respiratory: Clear to auscultation bilaterally, Normal air movement Cardiovascular: Regular rate/rhythm, Normal S1 S2 Gastrointestinal: Normal bowel sounds, No tenderness Musculoskeletal: Tenderness Integumentary: No rashes Neurological: Normal speech, Abnormal strength, Abnormal tone, Abnormal sensation Lymphatics: No axilla or inguinal lymphadenopathy - Studies Laboratory Data (last 24 hrs) 03/01/18 11:44: PT 18.1 H, INR 1.53, APTT 31.0 03/01/18 11:44: Sodium 138, Potassium 3.3 L, BUN 15, Creatinine 0.90, Glucose 174 H 03/01/18 11:44: WBC 17.6 H, Hgb 12.5, Hct 36.8, Plt Count 172 Assessment and Plan - Problems (Diagnosis) (1) Fall Current Visit: Yes Status: Acute Plan: S/p mechanical Fall -PT consulted. awaiting reccs -Fall precaution given Qualifiers: Encounter type: initial encounter Qualified Code(s): W19.XXXA - Unspecified fall, initial encounter (2) Hip fracture, left Current Visit: Yes Status: Acute Plan: Closed Left Hip fracture s.p Fall -Ortho consulted. Awaiting reccs -NPO for now -Cardiac Clearance with h.ila degroot on eliquis Qualifiers: Encounter type: initial encounter Fracture type: closed Qualified Code(s) : S72.002A - Fracture of unspecified part of neck of left femur, initial encounter for closed fracture (3) Atrial fibrillation Onset Date: 08/03/17 Current Visit: No Status: Chronic Plan: Hold eliquis at this time -Cardiology consulted for Surgical Clearance and holding elquis Qualifiers: Atrial fibrillation type: chronic Qualified Code(s): I48.2 - Chronic atrial fibrillation (4) Chronic pain Onset Date: 08/03/17 Current Visit: No Status: Chronic Qualifiers: Chronic pain type: chronic pain syndrome Qualified Code(s): G89.4 - Chronic pain syndrome (5) Hypertension Current Visit: No Status: Chronic Qualifiers: Hypertension type: essential hypertension Qualified Code(s): I10 - Essential (primary) hypertension (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
[2018-03-01 14:58] LABS: Urine Blood TRACE (NEG); Urine Glucose NEGATIVE (NEG); Urine Protein NEGATIVE (NEG)
[2018-03-01] MEDS ORDERED: ONDANSETRON 4 MG/2 ML VIAL IV PRN (16:01)
[2018-03-01] MEDS ORDERED: ACETAMINOPHEN 500 MG TAB PO PRN (16:01)
[2018-03-01 16:49] LABS: Protime INR 1.38
[2018-03-01] MEDS: MORPHINE 2 MG/ML SYR IV PRN ×2 (17:03→22:21)
[2018-03-01] MEDS: NA CHLORIDE 0.9% 1,000 ML IV SCH ×2 (17:09→20:50)
[2018-03-01] MEDS ORDERED: INFLUENZA VACCINE (for 3y+) 0.5 ML DOSE IMVAC ONE (20:00)
[2018-03-01] MEDS: GABAPENTIN 300 MG CAP PO SCH (20:51)
[2018-03-01] MEDS: CARVEDILOL 6.25 MG TAB PO SCH (20:51)
[2018-03-01] MEDS: ROPINIROLE HCL 0.25 MG TAB PO SCH (20:51)
[2018-03-01] MEDS: HYDROCODONE/APAP 10/325 TAB PO PRN (20:52)
[2018-03-01] MEDS ORDERED: HOME MED 1 EA UNK (Ropinirole Hcl [Requip] 0.5 MG) PO SCH (21:00)
[2018-03-01] MEDS ORDERED: HYDROMORPHONE HCL 1 MG/ML INJ IV ONE (23:26)
[2018-03-01 23:29] LABS: Urine Appearance CLOUDY; Urine Bilirubin NEGATIVE (NEG); Urine Blood 3+ (NEG); Urine Color YELLOW; Urine Glucose NEGATIVE (NEG); Urine Protein 2+ (NEG); Urine Urobilinogen 0.2 mg/dL (0.2-1.0); Urine pH 6.5 (5.0-7.0)
[2018-03-02 00:18] LABS: Urine Microscopic Reflex ORDER UMIC
[2018-03-02 01:11] LABS: Urine Bacteria <20 /HPF (<20); Urine RBC 20-50 /HPF (NONE SEEN)
[2018-03-02 01:12] LABS: Urine Culture Reflex Order REFLEXED
[2018-03-02] MEDS: MORPHINE 2 MG/ML SYR IV PRN (03:08)
[2018-03-02] MEDS ORDERED: MORPHINE 4 MG/ML SYR ONE (03:09)
--- NOTE | 2018-03-02 04:06 | CON ---
Consultation is requested by Yasmin Caro M.D., regarding subcapital left femur fracture. History Of Present Illness: This 77-year-old female was brought to the emergency room via ambulance after she fell on her back porch and sat down hard with immediate pain and deformity of her left hip. The patient on admission had x-ray, showed a displaced subcapital fracture of the left femoral neck . She has been admitted to bedrest and planned treatment for the left hip fracture. Allergies: THE PATIENT HAS NO KNOWN ALLERGIES. Past Medical History: Positive for arthritis, atrial fibrillation, chronic pain, hypertension. Past Surgical History: Spinal surgery and hysterectomy. Social History: Tobacco use is denied. Physical Examination: General: The patient has no severe distress while resting in her room in bed. Vital Signs: Stable. HEENT: Within normal limits. Neck: Supple. Chest: Clear to auscultation. Heart: Has a regular rate and rhythm. Abdomen: Soft and nontender. Active bowel sounds are present. Genital: Deferred. Rectal: Deferred. Medications: The patient's medications were reviewed, and she was taking 5 mg of Eliquis b.i.d. as a nticoagulation therapy for her diagnosis of atrial fibrillation. The patient's home medications include [place] 10/325 one p.o. q.4 hours and fentanyl 75 mcg/hour topic al patch to be applied q.72 hours. Laboratory Data: Lab work indicates her pro-time is 18.1 with an INR of 1.53. Hemoglobin is 12.5 an d hematocrit is 36.8. The patient's potassium is slightly low at 3.3. White blood cell count is 17. 6 with 83% neutrophils. On review of x-ray, there is a displaced femoral neck fracture that will require a prosthesis to be i nserted. A cemented unipolar prosthesis is planned. The patient will be given a 24- to 36-hour tirnidad od on normalization of pro-time and INR after discontinuing Eliquis tablets. The patient will be get ting medical clearance. She may have dinner or food this evening. Plan will be for surgery on DEEPTHI/OBDULIA Voice ID: [id number] Report ID: [id number]
[2018-03-02 05:13] LABS: Absolute Lymphocytes (CBC) 1.2 K/uL (0.7-4.9); Absolute Monocytes 0.6 K/uL (0.1-1.3); Absolute Neutrophil 6.3 K/uL (1.8-8.0); Basophils % 0.2 % (0-1.3); Eosinophils % 1.8 % (0-4.4); Hematocrit 33.6 % (36.0-45.0); Lymphocytes % 14.8 % (15.3-44.8); MCH 29.4 pg (27.0-35.0); MCV 85.8 fL (80-100); MPV 9.9 fL (7.6-11.3); Monocytes % 7.7 % (3.3-12.3); RBC Red Blood Cell Count 3.92 M/uL (3.86-4.86)
[2018-03-02 05:38] LABS: Phosphorus 2.8 mg/dL (2.5-4.9); Potassium 3.3 mmol/L (3.5-5.1); Protein, Total 5.8 g/dL (6.4-8.2)
[2018-03-02] MEDS: HYDROCODONE/APAP 10/325 TAB PO PRN ×2 (06:04→19:57)
[2018-03-02] MEDS: LEVOTHYROXINE SOD 0.125 MG TAB PO SCH (06:04)
[2018-03-02] MEDS: KCL 20 MEQ/100 mL IVPB 20 MEQ/100 ML BAG IV SCH ×2 (06:04→09:44)
[2018-03-02] MEDS ORDERED: PNEUMOCOCCAL VACCINE 0.5 ML IMVAC ONE (08:00)
[2018-03-02] MEDS ORDERED: FUROSEMIDE 40 MG TABLET PO SCH (09:00)
[2018-03-02] MEDS ORDERED: HOME MED 1 EA UNK (Lisinopril/Hydrochlorothiazide [Lisinopril-Hctz 20-12.5 Mg Tab] 1 EACH) PO SCH (09:00)
[2018-03-02] MEDS: LISINOPRIL 20 MG TAB PO SCH (09:44)
[2018-03-02] MEDS: DULOXETINE 30 MG CAP PO SCH (09:44)
[2018-03-02] MEDS: GABAPENTIN 300 MG CAP PO SCH ×3 (09:45→21:13)
[2018-03-02] MEDS: ROPINIROLE HCL 0.25 MG TAB PO SCH ×3 (09:45→21:14)
[2018-03-02] MEDS: CARVEDILOL 6.25 MG TAB PO SCH ×2 (09:45→21:14)
[2018-03-02] MEDS: hydroCHLOROthiazide 12.5 MG CAP PO SCH (09:46)
[2018-03-02] MEDS: MORPHINE 4 MG/ML SYR IV PRN ×4 (09:57→23:16)
--- NOTE | 2018-03-02 10:28 | RAD REPORT ---
EXAM DESCRIPTION: RAD - Chest Single View - 03/02/2018 10:14 am CLINICAL HISTORY: Pneumonia COMPARISON: December 25 TECHNIQUE: AP portable chest image was obtained 1001 hours . FINDINGS: No peripheral mass or consolidation seen. No failure finding seen. Patient does have chron ic interstitial lung disease matching the December 25 study. Heart and vasculature are normal. No measu rable pleural effusion and no pneumothorax. No gross bony abnormality seen. No acute aortic findings suspected. IMPRESSION: No acute cardiopulmonary process. Chronic interstitial lung disease similar to December comparison.
[2018-03-02] MEDS: NA CHLORIDE 0.9% 1,000 ML IV SCH ×2 (11:35→23:15)
--- NOTE | 2018-03-02 12:03 | P.PN ---
Subjective Date of Service: 03/02/18 Primary Care Provider: Unknown Chief Complaint: Fall Patient seen and examined at bedside with RN. Chart reviewed. Case discussed with orthopedic surgeon. No complaints to offer overnight. Is this morning has been doing well overall as well. Review of Systems 10-point ROS is otherwise unremarkable Physical Examination - Vital Signs Temperature: 98.4 F Blood Pressure: 129/58 Pulse: 69 Respirations: 18 Pulse Ox (%): 95 - Physical Exam General: Alert, In no apparent distress HEENT: Atraumatic, PERRLA, EOMI Neck: Supple, JVD not distended Respiratory: Clear to auscultation bilaterally, Normal air movement Cardiovascular: Regular rate/rhythm, Normal S1 S2 Gastrointestinal: Normal bowel sounds, No tenderness Musculoskeletal: No tenderness Integumentary: No rashes, Other (Neurofibromatosis noted) Neurological: Normal speech, Normal tone, Normal affect Lymphatics: No axilla or inguinal lymphadenopathy - Studies Laboratory Data (last 24 hrs) 03/01/18 11:44: PT 18.1 H, INR 1.53, APTT 31.0 03/01/18 11:44: Sodium 138, Potassium 3.3 L, BUN 15, Creatinine 0.90, Glucose 174 H 03/01/18 11:44: WBC 17.6 H, Hgb 12.5, Hct 36.8, Plt Count 172 Medications List Reviewed: Yes Assessment And Plan - Current Problems (Diagnosis) (1) Fall Current Visit: Yes Status: Acute Plan: S/p mechanical Fall -PT consulted. awaiting reccs -Fall precaution given Qualifiers: Encounter type: initial encounter Qualified Code(s): W19.XXXA - Unspecified fall, initial encounter (2) Hip fracture, left Current Visit: Yes Status: Acute Plan: Closed Left Hip fracture s.p Fall -Ortho consulted. Recommendation appreciated at this time -A cemented unipolar prosthesis is planned. -Pt to have normalization of pro-time and INR after discontinuing Eliquis tablets before surgery. -Tentatively planned ORIF on tuesday -Cardiac Clearance for Surgery obtained. Qualifiers: Encounter type: initial encounter Fracture type: closed Qualified Code(s) : S72.002A - Fracture of unspecified part of neck of left femur, initial encounter for closed fracture (3) Atrial fibrillation Onset Date: 08/03/17 Current Visit: No Status: Chronic Plan: Hold eliquis at this time -Cardiology consulted for Surgical Clearance and holding elquis Qualifiers: Atrial fibrillation type: chronic Qualified Code(s): I48.2 - Chronic atrial fibrillation (4) Chronic pain Onset Date: 08/03/17 Current Visit: No Status: Chronic Qualifiers: Chronic pain type: chronic pain syndrome Qualified Code(s): G89.4 - Chronic pain syndrome (5) Hypertension Current Visit: No Status: Chronic Qualifiers: Hypertension type: essential hypertension Qualified Code(s): I10 - Essential (primary) hypertension (6) 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
[2018-03-02] MEDS ORDERED: CEFAZOLIN/SWI 1gm 1 GM/10 ML SYR IVP SCH (18:30)
[2018-03-02] MEDS ORDERED: TRANEXAMIC ACID 1,000 MG in NA CHLORIDE 0.9% 50 ML IV ONE (18:30)
--- NOTE | 2018-03-02 18:46 | P.PN ---
Date of Service: 03/02/18 S: PATIENT BEING PATIENT AWAITING HIP SURGERY. ANTI-COAG THERAPY DISCONTINUED X 24 HRS. O: VSS PROTIME DOWN SLIGHTLY, INR BELOW 1.5 IS ACCEPTABLE, NOW 1.38. MEDICAL CLEARANCE GIVEN. NV EXAM INTACT. A: PATIENT ACCEPTABLE FOR INSERTION OF HIP PROTHESIS. P: COAG STUDIES IN AM. SURGERY PLANNED FOR 12 N. DISCUSSED RISKS AND BENEFITS WITH ALL QUESTIONS ANSWERED, PATIENT AND ELECT TO PROCEED.
[2018-03-02] MEDS ORDERED: LORazepam 2 MG/ML VIAL IV ONE (20:29)
[2018-03-02] MEDS ORDERED: POTASSIUM 25 MEQ EFFERV TAB PO ONE (21:00)
[2018-03-03] MEDS: MORPHINE 4 MG/ML SYR IV PRN ×3 (04:51→21:27)
[2018-03-03] MEDS: LEVOTHYROXINE SOD 0.125 MG TAB PO SCH (04:55)
[2018-03-03 06:09] VITALS: BMI 29.8
[2018-03-03 06:10] LABS: Absolute Lymphocytes (CBC) 1.2 K/uL (0.7-4.9); Absolute Monocytes 0.7 K/uL (0.1-1.3); Absolute Neutrophil 6.8 K/uL (1.8-8.0); Basophils % 0.2 % (0-1.3); Eosinophils % 3.2 % (0-4.4); Hematocrit 34.1 % (36.0-45.0); Lymphocytes % 12.7 % (15.3-44.8); MCH 29.5 pg (27.0-35.0); MCV 85.6 fL (80-100); MPV 10.3 fL (7.6-11.3); RBC Red Blood Cell Count 3.99 M/uL (3.86-4.86)
[2018-03-03 06:15] LABS: Bilirubin Total 1.2 mg/dL (0.2-1.0); Phosphorus 2.4 mg/dL (2.5-4.9); Potassium 3.5 mmol/L (3.5-5.1); Protein, Total 6.1 g/dL (6.4-8.2)
[2018-03-03 06:35] LABS: Protime INR 1.32
[2018-03-03] MEDS ORDERED: POTASSIUM PHOS IN 0.9 % NACL 15 MMOL/250 ML BAG IV ONE (06:42)
[2018-03-03] MEDS: ROPINIROLE HCL 0.25 MG TAB PO SCH ×3 (09:00→21:28)
[2018-03-03] MEDS: GABAPENTIN 300 MG CAP PO SCH ×3 (09:00→21:29)
[2018-03-03] MEDS: hydroCHLOROthiazide 12.5 MG CAP PO SCH (09:00)
[2018-03-03] MEDS: DULOXETINE 30 MG CAP PO SCH (09:00)
[2018-03-03] MEDS: CARVEDILOL 6.25 MG TAB PO SCH ×3 (09:00→21:30)
[2018-03-03] MEDS: LISINOPRIL 20 MG TAB PO SCH (09:00)
[2018-03-03] MEDS ORDERED: TRANEXAMIC ACID 1,000 MG in NA CHLORIDE 0.9% 50 ML IV ONE (11:00)
[2018-03-03] MEDS: NA CHLORIDE 0.9% 1,000 ML IV SCH ×2 (11:02→18:28)
[2018-03-03] MEDS ORDERED: NA CHLORIDE 0.9% 250 ML ONE (11:04)
[2018-03-03] MEDS ORDERED: CEFAZOLIN/SWI 1gm 0 GM/0 ML SYR ONE (11:26)
[2018-03-03] MEDS ORDERED: MEPERIDINE HCL 50 MG/ML AMP ONE (12:06)
[2018-03-03] MEDS ORDERED: FENTANYL CITR 100 MCG/2 ML ONE ×2 (12:08→13:28)
[2018-03-03] MEDS ORDERED: PROPOFOL 200 MG/20 ML VIAL IV ONE (12:08)
[2018-03-03] MEDS ORDERED: MIDAZOLAM HCL 2 MG/2 ML INJ ONE (12:08)
[2018-03-03] MEDS ORDERED: LIDOCAINE 1% MPF 2 ML AMPULE ONE (12:09)
[2018-03-03] MEDS ORDERED: ONDANSETRON HCL 40 MG/20 ML VIAL ONE (12:09)
--- NOTE | 2018-03-03 12:18 | P.PN ---
Subjective Date of Service: 03/03/18 Primary Care Provider: Unknown Chief Complaint: Fall Patient seen and examined at bedside with RN. Chart reviewed. Case discussed with orthopedic surgeon. No complaints to offer overnight. Is this morning has been doing well overall as well. Scheduled for Surgery today. NPO after Midnight. Review of Systems 10-point ROS is otherwise unremarkable Physical Examination - Vital Signs Temperature: 98.5 F Blood Pressure: 151/70 Pulse: 86 Respirations: 16 Pulse Ox (%): 95 - Physical Exam General: Alert, In no apparent distress HEENT: Atraumatic, PERRLA, EOMI Neck: Supple, JVD not distended Respiratory: Clear to auscultation bilaterally, Normal air movement Cardiovascular: Regular rate/rhythm, Normal S1 S2 Gastrointestinal: Normal bowel sounds, No tenderness Musculoskeletal: No tenderness Integumentary: Rash(es), Other Neurological: Normal speech, Normal tone, Normal affect Lymphatics: No axilla or inguinal lymphadenopathy - Studies Medications List Reviewed: Yes Assessment And Plan - Current Problems (Diagnosis) (1) Fall Onset Date: 03/02/18 Current Visit: Yes Status: Acute Plan: S/p mechanical Fall -PT consulted. awaiting reccs -Fall precaution given Qualifiers: Encounter type: initial encounter Qualified Code(s): W19.XXXA - Unspecified fall, initial encounter (2) Hip fracture, left Onset Date: 03/02/18 Current Visit: Yes Status: Acute Plan: Closed Left Hip fracture s.p Fall -Ortho consulted. Recommendation appreciated at this time -A cemented unipolar prosthesis is planned for today. -Cardiac Clearance for Surgery obtained. Qualifiers: Encounter type: initial encounter Fracture type: closed Qualified Code(s) : S72.002A - Fracture of unspecified part of neck of left femur, initial encounter for closed fracture (3) Atrial fibrillation Onset Date: 08/03/17 Current Visit: No Status: Chronic Plan: Hold eliquis at this time -Cardiology consulted for Surgical Clearance and holding elquis Qualifiers: Atrial fibrillation type: chronic Qualified Code(s): I48.2 - Chronic atrial fibrillation (4) Chronic pain Onset Date: 08/03/17 Current Visit: No Status: Chronic Qualifiers: Chronic pain type: chronic pain syndrome Qualified Code(s): G89.4 - Chronic pain syndrome (5) Hypertension Onset Date: 03/02/18 Current Visit: Yes Status: Chronic Qualifiers: Hypertension type: essential hypertension Qualified Code(s): I10 - Essential (primary) hypertension (6) 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
[2018-03-03] MEDS: BUPIVACA 0.5%/EPI 0.0005%/PF 30 ML VIAL ONE ×2 (12:49→15:22)
[2018-03-03] MEDS ORDERED: CEFAZOLIN SODIUM 1 GM/VIAL ONE (12:51)
[2018-03-03] MEDS ORDERED: NA CHLORIDE 0.9% 1,000 ML ONE (13:20)
[2018-03-03] MEDS ORDERED: Phenylephrine HCl 10 MG/ML 1 ML VIAL ONE (13:58)
--- NOTE | 2018-03-03 15:00 | RAD REPORT ---
EXAM DESCRIPTION: RAD - Hip Left 1 View - 03/03/2018 2:52 pm CLINICAL HISTORY: BIPOLAR HIP IN OR COMPARISON: Hip Left 2 View dated 03/01/2018 FINDINGS: Left total hip arthroplasty has been performed. The hardware is in expected alignment and positioning. No unexpected or unusual finding.
[2018-03-03] MEDS ORDERED: MORPHINE 10 MG/ML VIAL ONE (15:36)
--- NOTE | 2018-03-03 15:57 | P.BOP ---
Preoperative diagnosis: CLOSED DISPLACED LEFT SUBCAPITAL FEMORAL NECK FRACTURE Postoperative diagnosis: SAME Primary procedure: INSERTION OF UNIPOLAR,CEMENTED HIP PROSTHESIS LEFT HIP PROX.FEMUR FRACTURE Nematology Teacher: NICOLE URENA ([employer]AVE NECESSARY 1ST ASSIST SERVICES THROUGHOUT CASE) Estimated blood loss: 250 mL Specimen: FEMORAL HEAD AND SOFT TISSUE AND BONE SHARDS DEBRIDED Findings: FRACTURE FEMORAL NECK Anesthesia: General Complications: LOST CONTROL OF FEMORAL HEAD BALL DURING FIRST REDUCTION ATTEMPT. SOFT TISSUE ENTRAPPED IN ACETAB. WITH PARTIAL REDUCTION. IMMEDIATELY DISLOCATED FEMORAL HEAD. SECOND REDUCTION VERIFIED BY X-RAY. POSSIBLE INJURY SCIATIC NERVE. Implants: [place] cemented stem sz2;neck +0mm;hip ball 45mm;centralizer 8.5mm Fluids & blood products: SIMPLEX HV W/GENT 2 BATCHES IN CEMENT GUN. INJ 30 mL 0.5%MARCAINE W/EPI Transferred to: Recovery Room Condition: Good
--- NOTE | 2018-03-03 16:19 | RAD REPORT ---
EXAM DESCRIPTION: RAD - Pelvis - 03/03/2018 4:06 pm CLINICAL HISTORY: Left hip replacement COMPARISON: March 01 TECHNIQUE: AP imaging of the pelvis was obtained. FINDINGS: Left bipolar prosthesis has been placed. Hardware is in good position. No suspicious or un expected bone or implant finding.
[2018-03-03 16:24] LABS: Hematocrit 32.5 % (36.0-45.0)
[2018-03-03] MEDS: CEFAZOLIN/SWI 1gm 1 GM/10 ML SYR IV SCH (18:33)
[2018-03-03] MEDS: HYDROCODONE/APAP 10/325 TAB PO PRN (22:46)
[2018-03-03] MEDS ORDERED: MORPHINE 4 MG/ML SYR IV ONE (22:54)
[2018-03-04] MEDS: CEFAZOLIN/SWI 1gm 1 GM/10 ML SYR IV SCH (00:36)
[2018-03-04] MEDS: NA CHLORIDE 0.9% 1,000 ML IV SCH ×3 (00:38→10:34)
[2018-03-04] MEDS: MORPHINE 4 MG/ML SYR IV PRN ×4 (03:56→20:54)
[2018-03-04] MEDS: HYDROCODONE/APAP 10/325 TAB PO PRN ×2 (06:07→23:56)
[2018-03-04] MEDS: LEVOTHYROXINE SOD 0.125 MG TAB PO SCH (06:07)
[2018-03-04 07:16] LABS: Absolute Lymphocytes (CBC) 1.2 K/uL (0.7-4.9); Absolute Monocytes 1.5 K/uL (0.1-1.3); Absolute Neutrophil 12.6 K/uL (1.8-8.0); Basophils % 0.3 % (0-1.3); Eosinophils % 0.6 % (0-4.4); MCH 28.9 pg (27.0-35.0); MCV 86.7 fL (80-100); MPV 10.5 fL (7.6-11.3); Monocytes % 9.9 % (3.3-12.3); RBC Red Blood Cell Count 3.57 M/uL (3.86-4.86)
[2018-03-04 07:17] LABS: Albumin 2.6 g/dL (3.4-5.0); Bilirubin Total 0.8 mg/dL (0.2-1.0); Magnesium 1.9 mg/dL (1.8-2.4); Phosphorus 2.5 mg/dL (2.5-4.9); Potassium 3.9 mmol/L (3.5-5.1); Protein, Total 5.7 g/dL (6.4-8.2)
[2018-03-04] MEDS ORDERED: POTASSIUM PHOS IN 0.9 % NACL 15 MMOL/250 ML BAG IV ONE (08:00)
[2018-03-04] MEDS ORDERED: POTASSIUM PHOS 10 MM in NA CHLORIDE 0.9% 250 ML IV ONE (08:00)
[2018-03-04] MEDS: CARVEDILOL 6.25 MG TAB PO SCH ×2 (08:58→20:53)
[2018-03-04] MEDS: hydroCHLOROthiazide 12.5 MG CAP PO SCH (08:59)
[2018-03-04] MEDS: ROPINIROLE HCL 0.25 MG TAB PO SCH ×3 (09:00→20:53)
[2018-03-04] MEDS: GABAPENTIN 300 MG CAP PO SCH ×3 (09:00→20:54)
[2018-03-04] MEDS: DULOXETINE 30 MG CAP PO SCH (09:00)
[2018-03-04] MEDS: LISINOPRIL 20 MG TAB PO SCH (09:00)
--- NOTE | 2018-03-04 11:21 | P.PN ---
Subjective Date of Service: 03/04/18 Primary Care Provider: Unknown Chief Complaint: Fall Patient seen and examined at bedside with RN. Chart reviewed. Case discussed with orthopedic surgeon. No complaints to offer overnight. S/p Surgery. Doing well overall. Review of Systems 10-point ROS is otherwise unremarkable Physical Examination - Vital Signs Temperature: 98.4 F Blood Pressure: 149/67 Pulse: 95 Respirations: 17 Pulse Ox (%): 97 - Physical Exam General: Alert, In no apparent distress HEENT: Atraumatic, PERRLA, EOMI Neck: Supple, JVD not distended Respiratory: Clear to auscultation bilaterally, Normal air movement Cardiovascular: Regular rate/rhythm, Normal S1 S2 Gastrointestinal: Normal bowel sounds, No tenderness Musculoskeletal: No tenderness Integumentary: No rashes Neurological: Normal speech, Normal tone, Normal affect Lymphatics: No axilla or inguinal lymphadenopathy - Studies Medications List Reviewed: Yes Assessment And Plan - Current Problems (Diagnosis) (1) Fall Onset Date: 03/02/18 Current Visit: Yes Status: Acute Plan: S/p mechanical Fall -PT consulted. awaiting reccs -Fall precaution given Qualifiers: Encounter type: initial encounter Qualified Code(s): W19.XXXA - Unspecified fall, initial encounter (2) Hip fracture, left Onset Date: 03/02/18 Current Visit: Yes Status: Acute Plan: Closed Left Hip fracture s.p Fall -Ortho consulted. Recommendation appreciated at this time -S/P ORIF POD # 1 -Rehab Consulted for Placement Qualifiers: Encounter type: initial encounter Fracture type: closed Qualified Code(s) : S72.002A - Fracture of unspecified part of neck of left femur, initial encounter for closed fracture (3) Atrial fibrillation Onset Date: 08/03/17 Current Visit: No Status: Chronic Plan: Restarted on Eliquis today Qualifiers: Atrial fibrillation type: chronic Qualified Code(s): I48.2 - Chronic atrial fibrillation (4) Chronic pain Onset Date: 08/03/17 Current Visit: No Status: Chronic Qualifiers: Chronic pain type: chronic pain syndrome Qualified Code(s): G89.4 - Chronic pain syndrome (5) Hypertension Onset Date: 03/02/18 Current Visit: Yes Status: Chronic Qualifiers: Hypertension type: essential hypertension Qualified Code(s): I10 - Essential (primary) hypertension (6) Neurofibromatosis Onset Date: 08/03/17 Current Visit: No Status: Chronic (7) Elevated WBC count Current Visit: Yes Status: Acute Plan: Most Likely reactive Leukocytosis 2.2 to Surgery -Will get xray and repeat UA Qualifiers: Leukocytosis type: unspecified Qualified Code(s): D72.829 - Elevated white blood cell count, unspecified Discharge Plan: Other Plan to discharge in: 72 Hours - Code Status/Comfort Care Code Status Assessed: Yes Critical Care: No
--- NOTE | 2018-03-04 12:02 | P.PN ---
Date of Service: 03/04/18 (POD#1) S: PATIENT MORE AWAKE, RESPONDING TO DIRECTIONS. STILL DRIFTS INTO SLEEP DURING EXAM. O: VSS, HGB 10.3 THIS AM, WAS 11.0 POST-OP AND 11.8 PRE-OP. PLATELET COUNT 115L. TOTAL PROTEIN 5.7. NV EXAM SHOWS VIGOROUS DORSIFLEXION OF ANKLE. PATIENT CANNOT EXTEND KNEE DUE TO USUAL QUAD WEAKNESS, BUT HAMSTRINGS ACTIVATED SHE PUSHES HEEL DOWN AGAINST PILLOW. COMPLAINS OF INCISIONAL PAIN WITH MILD ABDUCTION. SENSATION INTACT TO LIGHT TOUCH BOTH SIDES OF LOWER LEG AND FOOT. P.T. DID BED EXERCISES. FAMILY DESCRIBES PATIENT UNABLE TO SIT UP. A: POST OP DAY #1. CONCERNED ABOUT SCIATIC NERVE INITIAL REDUCTION OF PROSTHESIS CAUGHT SOFT TISSUE BETWEEN ACETABULAR CUP AND HIP BALL. NO DROP FOOT ; HAMSTRINGS ACTIVE TODAY. PAIN APPROPRIATE FOR DAY 1. P: WILL CONTINUE SERIAL EXAMS, DISCUSSED ISSUES WITH FAMILY YESTERDAY AND TODAY. PLAN NEUROLOGY CONSULT FOR TUESDAY. EMG AND NCS BETTER AFTER 3 TO 4 WEEKS. MOBILIZE TOLERATED. WILL ASK FOR NUTRITIONAL CONSULT.
--- NOTE | 2018-03-04 16:42 | RAD REPORT ---
EXAM DESCRIPTION: RAD - Chest Single View - 03/04/2018 3:55 pm CLINICAL HISTORY: Pneumonia COMPARISON: March 02 TECHNIQUE: AP portable chest image was obtained 1543 hours . FINDINGS: Lung volumes are low. No focal consolidation, failure or acute lung parenchymal process. L ramonita markings are increased slightly from comparison. Heart and vasculature are normal. No measurable pleural effusion and no pneumothorax. No gross bony abnormality seen. No acute aortic findings suspec liz. IMPRESSION: No focal consolidation to suspect bacterial pneumonia. Interstitial markings have increased slightly. Interstitial edema and infiltrate are possible.
[2018-03-04] MEDS: APIXABAN 5 MG TABLET PO SCH (20:54)
[2018-03-05] MEDS: NA CHLORIDE 0.9% 1,000 ML IV SCH ×3 (00:34→21:44)
--- NOTE | 2018-03-05 01:03 | CON ---
Date of Consultation: 03/02/[address] Caro's service on 03/01/2018. I saw the patient on 03/02/2018. Reason For Consultation: Cardiac clearance for left hip fracture after a fall. History Of Present Illness: Ms. Causey is 77, has a history of chronic atrial fibrillation on Eliqui s, hypertension. She takes Coreg, lisinopril with hydrochlorothiazide. Has a history of hypothyroid ism. She is also on Lasix and potassium. No previous history of congestive heart failure or coronar y artery disease. She is asymptomatic from a cardiac standpoint. She had a fall, no syncope, has a left hip fracture. In 2018 in July, she had an echocardiogram, which was perfectly normal. Allergies: NONE. Review of Systems: Negative. Social History: Negative. Family History: Negative. Medications: Listed above. Past Medical History: As listed above. Physical Examination: Vital Signs: Stable, afebrile, atrial fibrillation, rate of 80. HEENT: Negative. Neck: Supple. No bruit. Chest: Clear. Cardiac: Revealed atrial fibrillation. Abdomen: Benign. Extremities: Revealed no clubbing, cyanosis, or edema. Diagnostic Data: Normal. Impression And Plan: The patient with history of chronic atrial fibrillation, on Eliquis. Normal ec hocardiogram in July of 2017. No cardiac symptoms. Normal cardiac exam except for atrial fibril lation. Again, normal echocardiogram in July of 2017, normal troponin. The patient is cleared f or hip surgery. Her Eliquis has been held since 5 o'clock in the morning the day before. She can park ve the surgery for sure on 03/04/2018. Her hypertension is well controlled. We will follow her as lincoln aguero. SOPHIE/OBDULIA Voice ID: [id number] Report ID: [id number]
[2018-03-05] MEDS: HYDROCODONE/APAP 10/325 TAB PO PRN ×2 (05:13→18:45)
[2018-03-05] MEDS: LEVOTHYROXINE SOD 0.125 MG TAB PO SCH (05:13)
[2018-03-05 05:46] LABS: Urine Appearance CLEAR; Urine Bilirubin NEGATIVE (NEG); Urine Blood 2+ (NEG); Urine Color DK YELLOW; Urine Glucose NEGATIVE (NEG); Urine Protein TRACE (NEG); Urine pH 5.5 (5.0-7.0)
[2018-03-05 05:56] LABS: Hematocrit 25.1 % (36.0-45.0)
[2018-03-05 06:17] LABS: Urine Microscopic Reflex ORDER UMIC
[2018-03-05 06:34] LABS: Phosphorus 1.5 mg/dL (2.5-4.9); Potassium 3.6 mmol/L (3.5-5.1)
[2018-03-05 07:00] LABS: Urine Culture Reflex Order NOT NEEDED
[2018-03-05] MEDS ORDERED: POTASSIUM PHOS IN 0.9 % NACL 15 MMOL/250 ML BAG IV ONE (07:00)
[2018-03-05 07:01] LABS: Urine Bacteria <20 /HPF (<20)
[2018-03-05] MEDS: MORPHINE 4 MG/ML SYR IV PRN ×3 (08:14→21:53)
[2018-03-05] MEDS: LISINOPRIL 20 MG TAB PO SCH (08:15)
[2018-03-05] MEDS: DULOXETINE 30 MG CAP PO SCH (08:15)
[2018-03-05] MEDS: CARVEDILOL 6.25 MG TAB PO SCH ×2 (08:15→21:43)
[2018-03-05] MEDS: ROPINIROLE HCL 0.25 MG TAB PO SCH ×3 (08:15→21:43)
[2018-03-05] MEDS: GABAPENTIN 300 MG CAP PO SCH ×3 (08:16→21:43)
[2018-03-05] MEDS: hydroCHLOROthiazide 12.5 MG CAP PO SCH (08:16)
[2018-03-05] MEDS: APIXABAN 5 MG TABLET PO SCH ×2 (09:03→21:43)
--- NOTE | 2018-03-05 14:24 | P.PN ---
Subjective Date of Service: 03/05/18 Primary Care Provider: Unknown Chief Complaint: Fall Patient seen and examined at bedside with RN. Chart reviewed. Case discussed with orthopedic surgeon. No complaints to offer overnight. S/p Surgery. Doing well overall. Review of Systems 10-point ROS is otherwise unremarkable Physical Examination - Vital Signs Temperature: 98.3 F Blood Pressure: 121/59 Pulse: 83 Respirations: 16 Pulse Ox (%): 97 - Physical Exam General: Alert, In no apparent distress HEENT: Atraumatic, PERRLA, EOMI Neck: Supple, JVD not distended Respiratory: Clear to auscultation bilaterally, Normal air movement Cardiovascular: Regular rate/rhythm, Normal S1 S2 Gastrointestinal: Normal bowel sounds, No tenderness Musculoskeletal: No tenderness Integumentary: No rashes Neurological: Normal speech, Normal tone, Normal affect Lymphatics: No axilla or inguinal lymphadenopathy - Studies Medications List Reviewed: Yes Assessment And Plan - Current Problems (Diagnosis) (1) Fall Onset Date: 03/02/18 Current Visit: Yes Status: Acute Plan: S/p mechanical Fall -PT consulted. awaiting reccs -Fall precaution given Qualifiers: Encounter type: initial encounter Qualified Code(s): W19.XXXA - Unspecified fall, initial encounter (2) Hip fracture, left Onset Date: 03/02/18 Current Visit: Yes Status: Acute Plan: Closed Left Hip fracture s.p Fall -Ortho consulted. Recommendation appreciated at this time -S/P ORIF POD # 3 -Rehab Consulted for Placement Qualifiers: Encounter type: initial encounter Fracture type: closed Qualified Code(s) : S72.002A - Fracture of unspecified part of neck of left femur, initial encounter for closed fracture (3) Atrial fibrillation Onset Date: 08/03/17 Current Visit: No Status: Chronic Plan: Restarted on Eliquis -Hgb Dropped to 8.6 -Will monitor Closely for kellie Qualifiers: Atrial fibrillation type: chronic Qualified Code(s): I48.2 - Chronic atrial fibrillation (4) Chronic pain Onset Date: 08/03/17 Current Visit: No Status: Chronic Qualifiers: Chronic pain type: chronic pain syndrome Qualified Code(s): G89.4 - Chronic pain syndrome (5) Hypertension Onset Date: 03/02/18 Current Visit: Yes Status: Chronic Qualifiers: Hypertension type: essential hypertension Qualified Code(s): I10 - Essential (primary) hypertension (6) Neurofibromatosis Onset Date: 08/03/17 Current Visit: No Status: Chronic (7) Elevated WBC count Current Visit: Yes Status: Acute Plan: Most Likely reactive Leukocytosis 2.2 to Surgery. Resolving now Qualifiers: Leukocytosis type: unspecified Qualified Code(s): D72.829 - Elevated white blood cell count, unspecified - Plan Currently awaiting placement at the rehab facility. Will follow up with hemoglobin tomorrow morning along with a CBC panel to make sure that leukocytosis is resolving. Patient to work with physical therapy here in the hospital on toe placement at rehab. The patient will benefit from rehab as patient does have medical condition that needs close monitoring while patient continues to do rehab. Patient has chronic atrial fibrillation and was recently restarted on Eliquis. Monitor hemoglobin as after hip surgery. Patient is at high risk for bleeding and patient will be placed on Eliquis which will increase her risk of bleeding even further. Discharge Plan: Transfer Plan to discharge in: 48 Hours - Code Status/Comfort Care Code Status Assessed: Yes Critical Care: No
--- NOTE | 2018-03-05 15:21 | P.PN ---
Date of Service: 03/05/18 S: PATIENT RESPONDING TO DIRECTIONS. O: VSS, HGB 8.6 THIS AM, WAS 10.3 YESTERDAY. ELIQUIS RESTARTED LAST NIGHT. BANDAGE LOOKS CLEAN AND DRY. NV EXAM SHOWS ACTIVE DORSIFLEXION OF ANKLE. PATIENT CANNOT EXTEND KNEE DUE TO USUAL QUAD WEAKNESS, ENCOURAGED TO DO RLE LEG LIFTS IN BED. HAMSTRINGS STILL ACTIVATED SHE PUSHES HEEL DOWN AGAINST MATTRESS. COMPLAINS OF INCISIONAL PAIN WITH MILD ABDUCTION OR EXT.ROTATION. P.T. DID BED EXERCISES AGAIN. FAMILY DESCRIBES PATIENT STOOD AT BEDSIDE TODAY. A: POST OP DAY #2. NO DROP FOOT; HAMSTRINGS ACTIVE TODAY. DAY 1. P: WILL CONTINUE SERIAL EXAMS, DISCUSSED CARE PLAN WITH AND DAUGHTER TODAY. PLAN NEUROLOGY CONSULT FOR TUESDAY. MOBILIZE TOLERATED.
[2018-03-06] MEDS: MORPHINE 4 MG/ML SYR IV PRN ×3 (01:31→14:42)
--- NOTE | 2018-03-06 02:16 | OP ---
Date of Procedure: 03/03/2018 Surgeon: Eligio Reynoso MD Behavioral Health Assistant: GIOVANNA Elliott, who gave very necessary rn first assistant services throughout the case. Preoperative Diagnosis: Closed displaced left subcapital femoral neck fracture. Postoperative Diagnosis: Closed displaced left subcapital femoral neck fracture. Primary Procedure: Insertion of unipolar cemented hip prosthesis, left hip proximal femur fracture. Indications: This 77-year-old female fell on her back porch impacting her left hip and suffered a displaced femoral neck fracture in the subcapital region. The patient was on Eliquis 5 mg b.i.d. dose of anticoagulation for atrial fibrillation, and she has been held from surgery for 36 hours to decrease influence of anticoagulation with Eliquis. The patient and family were advised about the risks and benefits and have elected to proceed. Technique: On transfer to the operating room, the patient was given general anesthesia in the bed and then moved to the operative table and placed in the left lateral position with an axillary roll and appropriate padding for bony prominences on the left side. The bolsters were placed and positioned behind the back and in front of the abdomen and pubic ramus for maintaining the alignment perpendicular to the floor. The left lower extremity was prepped and draped while in suspension dangling from an IV pole. Once the ribcage, hip, thigh, and lower leg were thoroughly prepped with Betadine scrub and Betadine solution, then the foot was removed from traction and DuraPrep was used for the foot and ankle. An impervious stockinette was placed in position and held with Coban. The incision was marked after blotting with a dry towel, and Ioban sticky drape was placed across the operative site and around the left thigh. The incision was made from the proximal femur one-third across the posterior aspect of the hip joint angling towards the posterior superior iliac spine. This was carried sharply through skin and subcutaneous tissue. Tissue was dissected 2 cm to each side in the line of the incision, clearing the iliotibial band for repair. Bovie coagulation was carried out meticulously to limit hemorrhage during this procedure. The incision in the fascia bryson was brought sharply proximally until finger pressure could dissect gluteus low. Self retainers were placed in position to maintain the position of the gluteus low and IT band once split. Careful approach to the posterior aspect of the proximal femur allowed dissection down releasing the external rotators and posterior capsule up to the level of the piriformis insertion and then angle was changed 90 degrees to move the incision towards the acetabulum. The fracture was exposed. The oscillating saw was used to recede the cut slightly from where the break had occurred. Then rongeur was used to remove excess bone. The corkscrew was placed in the femoral head and extraction of the femoral head was accomplished. The femoral head was measured at 45 mm in diameter. The acetabulum was palpated and found to be smooth without any retention of bony fragments and 2 Ray-Korina sponges were placed in the acetabulum. The Calcar retractor was placed under the femoral calcar and elevated to expose the access to the femoral preparation. A dust box tender was used to remove portions of the lateral calcar. Then the canal finder was utilized followed by the trochanteric lateralizer. The reamers were used, size 1 to size 4 and then broaches were utilized. A size 2 stem seemed to fill the neck area and risk of using size 3 or 4 seemed unnecessary as this was a cemented stem planned. A size 2 broach was left in place and the neck length + 0 mm was used with the 45 mm hip ball trial. The reduction proved quite stable. The knee could be flexed to 90+ degrees and internal rotation carried out without dislocation. The trial prosthetic components were removed and then the irrigation was initiated after the intramedullary plug was placed in the femoral canal. That area was dried inserting the absorptive component while cement, 2 batches of simplex high viscosity with gentamicin, was mixed and put into a cement gun for injection technique. The cement was injected distally to proximally and compressed, and the size 2 Mccl[place] cemented stem was pushed in position with excess cement curetted away from its proximal aspect. Then the 0 + mm tapered neck was assembled with the 45 mm Kenney hip ball and tapped in place. The 8.5 mm centralizer was also placed on the end the cemented stem before it was inserted. Reduction was then effected with the pusher instrument on the hip ball, traction by project administrative assistant, and a Rena clamp on the posterior capsule. As the reduction was being affected with appropriate traction and push , the Rena clamp came loose just as it was time to externally rotate to reduce. Giving that order for external rotation, I reached with the left hand to help push the traction necessary to maintain the hip ball over the acetabulum. When the pusher slipped off the femoral head, there was recoil and the head moved first posteriorly and dropped down and caught soft tissue as it was moving into the acetabular cup. There was no resounding seating of the femoral head component in the bottom of the acetabulum; it was a soft squishy reduction, and the hip was immediately re-dislocated. Inspection revealed some disruption of the perineural fat around the sciatic nerve. There was no indication to dissect and expose the nerve. The reduction attempt was repeated , and the hip ball was successfully put into the acetabular cup, and irrigation with Simpulse lavage was carried out. The reduction again proved quite stable with flexion to 120 degrees, and at 90 degrees, the internal rotation was carried 90 degrees, and the hip would not dislocate. The posterior capsule was repaired. The fascia bryson was closed with #1 Vicryl, #1 Vicryl was used for deep subcutaneous closure with interrupted sutures, 2-0 Vicryl was used for the shallow subcu, and skin nguyen were used for the skin. Estimated blood loss was 250 mL. The incision line was injected with 30 mL of 0.5% Marcaine with epinephrine. The specimen sent to the lab included the femoral head and soft tissue and bone shards debrided. The patient was then transferred to the recovery room having tolerated this procedure well. DEEPTHI/OBDULIA Voice ID: [id number] Report ID: [id number] JAYASHREE
[2018-03-06 06:07] LABS: Hematocrit 23.5 % (36.0-45.0)
[2018-03-06] MEDS: HYDROCODONE/APAP 10/325 TAB PO PRN ×3 (06:07→21:36)
[2018-03-06] MEDS: LEVOTHYROXINE SOD 0.125 MG TAB PO SCH (06:07)
[2018-03-06] MEDS: NA CHLORIDE 0.9% 1,000 ML IV SCH ×2 (06:08→18:25)
[2018-03-06 07:05] LABS: BUN Blood Urea Nitrogen 9 mg/dL (7-18); Bicarbonate 28 mmol/L (21-32); Glucose Level 97 mg/dL (74-106); Phosphorus 1.7 mg/dL (2.5-4.9); Potassium 3.8 mmol/L (3.5-5.1); Sodium Level 141 mmol/L (136-145)
[2018-03-06] MEDS: CARVEDILOL 6.25 MG TAB PO SCH ×2 (09:41→21:32)
[2018-03-06] MEDS: GABAPENTIN 300 MG CAP PO SCH ×3 (09:41→21:33)
[2018-03-06] MEDS: APIXABAN 5 MG TABLET PO SCH ×2 (09:41→21:32)
[2018-03-06] MEDS: DULOXETINE 30 MG CAP PO SCH (09:41)
[2018-03-06] MEDS: hydroCHLOROthiazide 12.5 MG CAP PO SCH (09:42)
[2018-03-06] MEDS: LISINOPRIL 20 MG TAB PO SCH (09:42)
[2018-03-06] MEDS: ROPINIROLE HCL 0.25 MG TAB PO SCH ×3 (09:45→21:32)
--- NOTE | 2018-03-06 11:35 | P.PN ---
Subjective Date of Service: 03/06/18 Primary Care Provider: Unknown Chief Complaint: Fall Patient seen and examined at bedside with RN. Chart reviewed. Case discussed with orthopedic surgeon. No complaints to offer overnight. S/p Surgery. Doing well overall. Review of Systems 10-point ROS is otherwise unremarkable Physical Examination - Vital Signs Temperature: 98.4 F Blood Pressure: 125/59 Pulse: 88 Respirations: 18 Pulse Ox (%): 98 - Physical Exam General: Alert, In no apparent distress HEENT: Atraumatic, PERRLA, EOMI Neck: Supple, JVD not distended Respiratory: Clear to auscultation bilaterally, Normal air movement Cardiovascular: Regular rate/rhythm, Normal S1 S2 Gastrointestinal: Normal bowel sounds, No tenderness Musculoskeletal: No tenderness Integumentary: No rashes Neurological: Normal speech, Normal tone, Normal affect Lymphatics: No axilla or inguinal lymphadenopathy - Studies Medications List Reviewed: Yes Assessment And Plan - Current Problems (Diagnosis) (1) Fall Onset Date: 03/02/18 Current Visit: Yes Status: Acute Plan: S/p mechanical Fall -PT consulted. awaiting reccs -Fall precaution given Qualifiers: Encounter type: initial encounter Qualified Code(s): W19.XXXA - Unspecified fall, initial encounter (2) Hip fracture, left Onset Date: 03/02/18 Current Visit: Yes Status: Acute Plan: Closed Left Hip fracture s.p Fall -Ortho consulted. Recommendation appreciated at this time -S/P ORIF POD # 4 -CM consulted. SNF placement Qualifiers: Encounter type: initial encounter Fracture type: closed Qualified Code(s) : S72.002A - Fracture of unspecified part of neck of left femur, initial encounter for closed fracture (3) Atrial fibrillation Onset Date: 08/03/17 Current Visit: No Status: Chronic Plan: Restarted on Eliquis -Hgb down to 8.1 today. No active bleeding -Will monitor Closely for kellie Qualifiers: Atrial fibrillation type: chronic Qualified Code(s): I48.2 - Chronic atrial fibrillation (4) Chronic pain Onset Date: 08/03/17 Current Visit: No Status: Chronic Qualifiers: Chronic pain type: chronic pain syndrome Qualified Code(s): G89.4 - Chronic pain syndrome (5) Hypertension Onset Date: 03/02/18 Current Visit: Yes Status: Chronic Qualifiers: Hypertension type: essential hypertension Qualified Code(s): I10 - Essential (primary) hypertension (6) Neurofibromatosis Onset Date: 08/03/17 Current Visit: No Status: Chronic (7) Elevated WBC count Current Visit: Yes Status: Acute Plan: Most Likely reactive Leukocytosis 2.2 to Surgery. Resolving now Qualifiers: Leukocytosis type: unspecified Qualified Code(s): D72.829 - Elevated white blood cell count, unspecified - Plan Currently awaiting placement at the SNF facility. Patient to work with physical therapy here in the hospital pending placement at SNF. Patient family [facility] Discharge Plan: Other Plan to discharge in: 48 Hours - Code Status/Comfort Care Code Status Assessed: Yes Critical Care: No
--- NOTE | 2018-03-06 13:28 | P.BOP ---
Preoperative diagnosis: CLOSED DISPLACED LEFT SUBCAPITAL FEMORAL NECK FRACTURE Postoperative diagnosis: SAME Primary procedure: INSERTION OF UNIPOLAR,CEMENTED HIP PROSTHESIS LEFT HIP PROX.FEMUR FRACTURE Hot Die Picker: NICOLE URENA (GAVE NECESSARY 1ST ASSIST SERVICES THROUGHOUT CASE) Estimated blood loss: 250 mL Specimen: FEMORAL HEAD AND SOFT TISSUE AND BONE SHARDS DEBRIDED Complications: LOST CONTROL OF FEMORAL HEAD BALL DURING FIRST REDUCTION ATTEMPT. SOFT TISSUE ENTRAPPED IN ACETAB. WITH PARTIAL REDUCTION. IMMEDIATELY DISLOCATED FEMORAL HEAD. SECOND REDUCTION VERIFIED BY X-RAY. POSSIBLE INJURY SCIATIC NERVE. Implants: [place] cemented stem sz2;neck +0mm;hip ball 45mm;centralizer 8.5mm Fluids & blood products: SIMPLEX HV W/GENT 2 BATCHES IN CEMENT GUN. INJ 30 mL 0.5%MARCAINE W/EPI Transferred to: Recovery Room Condition: Good
--- NOTE | 2018-03-06 13:37 | P.PN ---
Date of Service: 03/06/18 (POD#3) S: PATIENT SITTING UP IN BEDSIDE CHAIR, WAS ABLE TO STAND AND PIVOT THIS AM. C/ O PAIN IN LATERAL LEFT HIP POINTING TO INCISION AREA. O: VSS, HGB 8.1 THIS AM, WAS 8.6 YESTERDAY. PAIN INTENSITY RECORDED 5,3,7,4,3 ,3/10, BUT TOLD P.T. IT WAS 12/10. NV EXAM SHOWS CONTINUED DORSIFLEXION OF ANKLE. SENSATION INTACT TO LIGHT TOUCH BOTH SIDES OF LOWER LEG AND FOOT; PATIENT DENIES PAIN IN LOWER LEG. A: POST OP DAY #3. CONSULT BY NEUROLOGY PLANNED FOR TODAY. NO DROP FOOT; PAIN RECORD IMPROVING. P: WILL CONTINUE SERIAL EXAMS, DISCUSSED ISSUES WITH FAMILY AGAIN TODAY. 5TH FLOOR REHAB CONSULT. MOBILIZE TOLERATED.
[2018-03-06] MEDS: POTASS/SODIUM PHOSPHATE 1 PKT POWD.PACK PO SCH ×3 (20:15→22:00)
[2018-03-06] MEDS ORDERED: POTASSIUM CL SA 10 MEQ TAB PO ONE (21:00)
--- NOTE | 2018-03-06 21:37 | CON ---
Reason For Consultation: Consultation called by Dr. Reynoso because of possible left femoral entrapme nt for neuropathy after hip replacement surgery on the left femoral fracture. History Of Present Illness: Ms. Causey is a 77-year-old patient with hypertension, atrial fibrillati on, arthritis, and chronic pain, who fell at home on the 03/01/2018. She was walking on her porch. She ambulates with a walker. She slipped, landed on the left side, and developed pain and was unable to bear weight. Emergency medical services brought her to [facility] where the diagnosis o f left hip fracture was made. Orthopedic Surgery was consulted and she was diagnosed with a displace d subcapital fracture of the left femoral neck with planned treatment of surgery. Dr. Reynoso did ricardo piyush on 03/03/2018. He performed insertion of a unipolar cemented hip prosthesis in the left hip pro ximal femoral fracture. The patient said after she woke up, she of course felt postoperative pain bu t felt some more pain in the medial thigh area and the groin and in the anterior left thigh. She den ied that the pain radiated down the medial thigh to the knee or the medial and anterior leg. Because of the restriction following surgery, she has not been standing or bearing weight and does not repor t any new weakness in the left lower extremity, but again she has not been fully evaluated for that. She has good strength with foot dorsiflexion and plantar flexion bilaterally and denies any new pain radiating down into the leg. The call for evaluation by Neurology is to rule out femoral nerve lesi on, potentially either above or below the inguinal ligament. The patient has been on narcotic use for an extended period of time and is on a fairly low dosage of gabapentin chronically and those medicines have been adjusted recently. Past Medical History: As indicated above, in addition to the arthritis and chronic pain. Past Surgical History: Hysterectomy, spinal surgery. Social History: No alcohol, tobacco, or IV drug use. Allergies: NO KNOWN DRUG ALLERGIES. Home Medications: Gabapentin 300 mg 3 times daily, [place] 10/325 every 4 hours as needed, Synthroid 1 25 mcg at bedtime, Requip 0.5 mg 3 times a day, furosemide 40 mg daily, Eliquis 5 mg twice daily, asp irin 81 mg at bedtime, carvedilol 6.25 mg twice daily, Senokot-S one twice daily as needed, Cymbalta 30 mg daily, lisinopril hydrochlorothiazide 20-12.5 daily, potassium 10 mEq at bedtime. Family History: Noncontributory. Review of Systems: The patient has chronic arthritic pain in the extremities and ambulates with a walker. Denies focal weakness in the arms, legs, face. Denies any recent fevers or chills, nausea or vomiting, any myalgi as or arthralgias, rash, on top of what is mentioned previously. No rash. No weight change. No psy chiatric issues. Physical Examination: Vital Signs: Blood pressure 117/59, pulse 85, respiratory rate 18, temperature 98.3, oxygen saturati on 98%. Weight 168 pounds. Height 5 feet 3 inches. General: Ms. Causey is resting comfortably in bed. She is eating dinner. Family is at the bedside. She is in no acute distress. She is normocephalic, atraumatic. She appears to have neurofibromato sis from the multiple nodules seen in the face, arms, and disseminated throughout the body. She othe rwise has no issues in terms of the abdomen being soft and the extremities show no significant edema, cyanosis, or clubbing Neurologic: She is alert and oriented to situation, place, time. Follows all commands appropriately. She has no expressive or receptive aphasias. On cranial nerves 2-12, she h as no focal deficits. Motor Examination: In the upper extremities; no focal weakness proximally and distally, at least 4+ out of 5 and symmetric. In the lower extremities; due to her recent left hip surgery unable to fully assess for hip flexion and knee extension, but her foot dorsiflexion and plantar flexion are [facility] and this is bilaterally. Hip flexion on the right also unable to fully assess given the patie nt's position in bed and recent surgery plus her thighs and legs are secured to a wedge support which is placed following surgery. Sensory Exam: Stocking-glove loss, light touch, temperature, reflexes were unable to fully assess gi iman the restriction on the legs and lower extremities and trace in the upper extremities. Coordinati on in the upper extremities intact for gait. She will be ambulated with physical therapy. Laboratory Studies: White blood cell count 2 days ago 15.6 with neutrophils 81.2. Hemoglobin as of today 8.1, that is down from 11.5; a high of 11.8 on 03/03/2018. Hematocrit 23.5, down from a high o f 34.1. Platelets are 115. Coagulation panel shows an INR of 1.32. Chemistries; sodium 141, potass ium 3.8, chloride 107, carbon dioxide 28, BUN 9, creatinine 0.5, glucose 97, calcium 7.7, phosphorus low at 1.7. Liver function studies unremarkable. Total protein low at 5.7, albumin low at 2.6. Uri nalysis from 03/01/2018 did show 2+ esterase, 3+ blood, 20-50 white blood cells, 2+ total protein. P elvic x-ray from 03/03/2018 shows left bipolar prosthesis has been in place, hardware in good positio n, no suspicious or unexpected findings in the bone. Chest x-ray from 03/04/2018 shows no focal cons olidation to suspect bacterial pneumonia, interstitial markings increased, possibly related to edema. Assessment: Ms. 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 However, I was not able to fully assess hip flexion and knee ext ension to distinguish between cednd-ozb-qahekpgx ligament or ntwxh-bgv-hsiyzwzl ligament femoral comp ression or neuropathy. She does not have a sensory loss in the left medial thigh compared to the rig ht side, which is against the presence of a compressive neuropathy in the femoral nerve. She also park s excellent dorsiflexion and plantar flexion in the left and right lower extremities. Plan: 1.To address her pain, we will increase gabapentin to 600 mg twice daily; the total of 1200 mg from 900 mg. I also may place a Lidoderm patch at the left inguinal or groin area and also may try tramad ol. 2.Continue current level of other medications for pain management. 3.The patient may benefit from inpatient rehabilitation for perhaps possibly 2 weeks to 3 weeks of p hysical therapy as she heals. 4.Her anemia with hemoglobin of 8.1 may be addressed as appropriate by primary team and she may bene fit from Hemocyte Plus along with protein supplementation of ProMod daily. 5.If the patient's symptoms progress in terms of weakness at the hip on the left, possibly EMG nerve conduction of the left lower extremity may be helpful in distinguishing femoral neuropathy above or below the inguinal ligament. LILLIAM/OBDULIA Voice ID: [id number] Report ID: [id number]
[2018-03-06] MEDS ORDERED: POTASS/SODIUM PHOSPHATE 1 PKT POWD.PACK ONE (23:04)
[2018-03-07] MEDS: DOCUSATE NA/SENNA CONC 1 TAB PO PRN ×2 (02:19→21:10)
[2018-03-07] MEDS: NA CHLORIDE 0.9% 1,000 ML IV SCH ×2 (02:19→12:31)
[2018-03-07] MEDS: HYDROCODONE/APAP 10/325 TAB PO PRN ×2 (02:21→14:20)
[2018-03-07] MEDS: MORPHINE 4 MG/ML SYR IV PRN ×4 (03:39→21:11)
[2018-03-07 05:16] LABS: Hematocrit 21.6 % (36.0-45.0)
[2018-03-07 05:29] LABS: BUN Blood Urea Nitrogen 9 mg/dL (7-18); Bicarbonate 28 mmol/L (21-32); Glucose Level 108 mg/dL (74-106); Phosphorus 2.4 mg/dL (2.5-4.9); Potassium 4.1 mmol/L (3.5-5.1); Sodium Level 141 mmol/L (136-145)
[2018-03-07] MEDS: LEVOTHYROXINE SOD 0.125 MG TAB PO SCH (05:30)
[2018-03-07] MEDS: FERROUS SULFATE 325 MG TAB PO SCH ×2 (06:10→15:53)
[2018-03-07] MEDS: ROPINIROLE HCL 0.25 MG TAB PO SCH ×3 (08:53→21:10)
[2018-03-07] MEDS: GABAPENTIN 300 MG CAP PO SCH ×2 (08:54→21:10)
[2018-03-07] MEDS: LISINOPRIL 20 MG TAB PO SCH (08:54)
[2018-03-07] MEDS: DULOXETINE 30 MG CAP PO SCH (08:55)
[2018-03-07] MEDS: CARVEDILOL 6.25 MG TAB PO SCH ×2 (08:55→21:11)
[2018-03-07] MEDS: hydroCHLOROthiazide 12.5 MG CAP PO SCH (08:55)
[2018-03-07] MEDS: APIXABAN 5 MG TABLET PO SCH ×2 (08:56→21:12)
[2018-03-07] MEDS ORDERED: NA CHLORIDE 0.9% 250 ML ONE (12:06)
--- NOTE | 2018-03-07 17:20 | PN ---
Date of Progress Note: 03/07/2018 Subjective: The patient seen and examined. Chart reviewed and case discussed with RN. The patient states her pain is well controlled. Family at the bedside. All treatment plan explained. All quest ions answered. Awaiting acceptance to rehab. Code Status: Full. Review of Systems: Negative except as above. Medications: List reviewed. Physical Examination: Vital Signs: Temperature is 98.5, heart rate 88, respirations 16, O2 100% on room air. Blood pressu re 137/61. General: Awake, alert, oriented x3, not in any acute distress. Elderly female. CV: S1, S2. Irregularly irregular. Peripheral pulses present. Respiratory: Moving air well bilaterally. No wheezing. No stridor. Gastrointestinal: Abdomen is soft, nontender, nondistended. Positive bowel sounds. Extremities: No clubbing, cyanosis, or edema. Neurologic: Nonfocal. Musculoskeletal: Left hip incision site is bandaged. No signs of infection. Clean, dry, and intact . Laboratory Data: Sodium 141, potassium 4.1, chloride 106, CO2 28, BUN 9, creatinine 0.5, glucose 90, calcium 7.7, phosphorus 2.4. H and H 7.3 and 21.6. Assessment And Plan: A 77-year-old female with: 1.Status post fall, mechanical. Continue PT. 2.Left-sided hip fracture, closed, initial encounter, status post open reduction and internal fixati on, postoperative day #5, awaiting placement. 3.Chronic atrial fibrillation. Restarted on Eliquis. The patient did have some low hemoglobin toda y. Will need to be transfused. 4.Acute blood loss anemia, likely postoperative. Will transfuse 1 unit of PRBCs and monitor H and H . 5.Chronic pain syndrome, stable. 6.Essential hypertension, stable. 7.Neurofibromatosis, chronic. 8.Gastrointestinal and deep venous thrombosis prophylaxis addressed. Plan: Awaiting placement to SNF. We will transfuse PRBCs and monitor H and H. SA/MODL Voice ID: [id number] Report ID: [id number]
[2018-03-07 17:27] LABS: Hematocrit 26.1 % (36.0-45.0)
[2018-03-08] MEDS: LEVOTHYROXINE SOD 0.125 MG TAB PO SCH (05:08)
[2018-03-08] MEDS: MORPHINE 4 MG/ML SYR IV PRN ×4 (05:08→20:52)
[2018-03-08 06:09] LABS: Absolute Lymphocytes (CBC) 0.9 K/uL (0.7-4.9); Absolute Monocytes 0.9 K/uL (0.1-1.3); Absolute Neutrophil 5.3 K/uL (1.8-8.0); Basophils % 0.8 % (0-1.3); Eosinophils % 5.7 % (0-4.4); Hematocrit 26.4 % (36.0-45.0); MCH 29.4 pg (27.0-35.0); MCV 84.8 fL (80-100); MPV 9.8 fL (7.6-11.3); Monocytes % 12.3 % (3.3-12.3); RBC Red Blood Cell Count 3.11 M/uL (3.86-4.86)
[2018-03-08 06:29] LABS: BUN Blood Urea Nitrogen 8 mg/dL (7-18); Bicarbonate 30 mmol/L (21-32); Glucose Level 105 mg/dL (74-106); Magnesium 1.9 mg/dL (1.8-2.4); Phosphorus 2.9 mg/dL (2.5-4.9); Potassium 3.8 mmol/L (3.5-5.1); Sodium Level 141 mmol/L (136-145)
[2018-03-08] MEDS ORDERED: POTASSIUM CL SA 10 MEQ TAB PO ONE (09:00)
[2018-03-08] MEDS: ROPINIROLE HCL 0.25 MG TAB PO SCH ×3 (09:54→20:49)
[2018-03-08] MEDS: FERROUS SULFATE 325 MG TAB PO SCH ×2 (09:54→17:57)
[2018-03-08] MEDS: LISINOPRIL 20 MG TAB PO SCH (09:55)
[2018-03-08] MEDS: APIXABAN 5 MG TABLET PO SCH ×2 (09:55→20:50)
[2018-03-08] MEDS: CARVEDILOL 6.25 MG TAB PO SCH ×2 (09:55→20:50)
[2018-03-08] MEDS: DULOXETINE 30 MG CAP PO SCH (09:55)
[2018-03-08] MEDS: GABAPENTIN 300 MG CAP PO SCH ×2 (09:55→20:49)
[2018-03-08] MEDS: hydroCHLOROthiazide 12.5 MG CAP PO SCH (09:55)
--- NOTE | 2018-03-08 17:27 | PN ---
Subjective: The patient seen and examined, chart reviewed, and case discussed with RN, the family at the bedside. The patient did well overnight. However does complain of some pain in her hip, which is bothering her. Review of Systems: Negative except as above. Medications: List reviewed. Physical Examination: Vital Signs: Temperature 97.8, heart rate 77, blood pressure 150/58, respirations 18, O2 99% on room air. General: Awake, alert, oriented x3. She is in mild distress. Elderly female in pain. CV: S1, S2. Peripheral pulses present, irregularly irregular. Respiratory: Moving air well bilaterally. No wheezing or stridor. Gastrointestinal: Abdomen is soft, nontender, nondistended. Positive bowel sounds. Extremities: No clubbing, cyanosis, or edema. Musculoskeletal: Incision site of the hip is clean, dry, intact on the left. Neuro: Nonfocal. Laboratory Data: Sodium 141, potassium 3.8, chloride 104, CO2 30, BUN 8, creatinine 0.6, glucose 105 , calcium 8.1, phosphorus 2.9, magnesium 1.9. WBC 7.6, H and H 9.2 and 26.4, platelets 176, neutroph ils 59%. Urine cultures growing Enterococcus faecalis. Sensitive to penicillin, ampicillin, tetracy harvey, and vancomycin. Assessment And Plan: A 77-year-old female with: 1.Status post fall, mechanical. Continue PT. 2.Left-sided hip fracture closed, initial encounter, status post open reduction and internal fixatio n, postoperative day #6. Continue PT, pain control. Appreciate Dr. Reynoso's input. 3.Chronic atrial fibrillation. Restarted on Eliquis. The patient did receive transfusion yesterday . We will continue to monitor. Currently rate controlled. 4.Acute blood loss anemia likely postoperative, status post 1 unit PRBCs. Monitor H and H. 5.Chronic pain syndrome, stable. 6.Essential hypertension, stable. 7.Neurofibromatosis, chronic. 8.Gastrointestinal and deep venous thrombosis prophylaxis addressed. Plan: The patient denied by Rehab. Awaiting placement to [facility]. /MODL Voice ID: [id number] Report ID: [id number]
--- NOTE | 2018-03-08 20:05 | P.PN ---
Date of Service: 03/07/18 S: PATIENT RECLINING COMFORTABLY IN BED WITH ABDUCTION PILLOW IN PLACE, VISITING WITH SON AND [id number]. NO C/O PAIN THIS VISIT. O: VSS, HGB 8.9 THIS AM, WAS DOWN TO 7.3 YESTERDAY AND REQUIRED [address] ROGERS. PAIN INTENSITY RECORDED O,6,6,6,6/10. NV EXAM SHOWS CONTINUED DORSIFLEXION OF LEFT ANKLE TOES. SENSATION INTACT TO LIGHT TOUCH. PATIENT WAS ENCOURAGED TO CARRY OUT LEG EXERCISES IN BED BETWEEN THERAPY EPISODES. ABDUCTION PILLOW STRAPS WERE LOOSENED AND THE PATIENT WAS ASKED TO LIFT HER RIGHT LEG 5 TIMES AND FOLLOW BY LIFTING THE LEFT LEG ONCE. THE PATIENT WAS ABLE TO CARRY OUT THAT REQUEST LIFTING EACH LEG 3-4 INCHES OFF THE MATTRESS WITHOUT SIGNIFICANT DISCOMFORT. A: POST OP DAY #4. CONSULT BY NEUROLOGY APPRECIATED. DR. SEBASTIAN ASSESSED PATIENT HAVING POSSIBLE MILD LEFT FEMORAL NEUROPATHY, BUT WAS UNABLE TO FULLY ASSESS HIP FLEXION AND KNEE EXTENSION TO DISTINGUISH BETWEEN ABOVE THE INGUINAL LIGAMENT OR BELOW THE LIGAMENT COMPRESSION OR NEUROPATHY. HE FOUND NO SENSORY LOSS IN THE MEDIAL LEFT THIGH WHICH IS AGAINST COMPRESSIVE NEUROPATHY OF THE FEMORAL NERVE, AND SHE WAS FOUND TO HAVE EXCELLENT DORSIFLEXION AND PLANTARFLEXION OF ANKLES IN BOTH LOWER EXTREMITIES. OF POSSIBLE INTEREST, THE STRAIGHT LEG LIFTS DESCRIBED ABOVE INVOLVED HIP FLEXION WHILE MAINTAINING KNEE EXTENSION. ONLY 2 REPS WITNESSED FOR LLE. P: WILL CONTINUE SERIAL EXAMS, DISCUSSED ISSUES WITH PATIENT'S SON WHO IS ABLE TO COME ONLY AT NIGHT. CONTINUE TO MOBILIZE TOLERATED.
[2018-03-09] MEDS: MORPHINE 4 MG/ML SYR IV PRN ×3 (03:44→13:53)
[2018-03-09 05:20] LABS: BUN Blood Urea Nitrogen 7 mg/dL (7-18); Bicarbonate 30 mmol/L (21-32); Glucose Level 105 mg/dL (74-106); Potassium 4.2 mmol/L (3.5-5.1); Sodium Level 144 mmol/L (136-145)
[2018-03-09] MEDS: HYDROCODONE/APAP 10/325 TAB PO PRN ×2 (05:48→11:46)
[2018-03-09] MEDS: LEVOTHYROXINE SOD 0.125 MG TAB PO SCH (05:48)
[2018-03-09 08:42] VITALS: O2SAT 97
[2018-03-09] MEDS: LISINOPRIL 20 MG TAB PO SCH (09:00)
[2018-03-09] MEDS: GABAPENTIN 300 MG CAP PO SCH (09:10)
[2018-03-09] MEDS: APIXABAN 5 MG TABLET PO SCH (09:10)
[2018-03-09] MEDS: FERROUS SULFATE 325 MG TAB PO SCH (09:11)
[2018-03-09] MEDS: CARVEDILOL 6.25 MG TAB PO SCH (09:11)
[2018-03-09] MEDS: ROPINIROLE HCL 0.25 MG TAB PO SCH ×2 (09:11→13:53)
[2018-03-09] MEDS: DULOXETINE 30 MG CAP PO SCH (09:12)
[2018-03-09] MEDS: hydroCHLOROthiazide 12.5 MG CAP PO SCH (09:12)
[2018-03-09 17:57] VITALS: BP 134/61; TEMP 97.4
--- NOTE | 2018-03-09 18:57 | P.PN ---
Date of Service: 03/08/18 (POD#5) S: PATIENT COMFORTABLE IN BED THIS MORNING. NO COMPLAINTS. O: VSS, HGB 9.2 THIS AM, WAS 8.9 YESTERDAY AFTER 1 UNIT TRANSFUSION PRBC. PAIN INTENSITY RECORDED 6,0,9,6,8,6/10. NV EXAM SHOWS CONTINUED DORSIFLEXION OF LEFT ANKLE TOES. SENSATION INTACT TO LIGHT TOUCH MEDIAL AND LATERAL THIGH AND LOWER LEG LLE. BANDAGE IS CLEAN DRY AND INTACT. PATIENT EXPRESSES DISBELIEF THAT SHE HAS A BANDAGE EACH TIME IT'S MENTIONED A: POST OP DAY #5. PATIENT REPORTS SHE HAS CHOSEN [facility] FOR POST HOSPITAL CARE. P: WILL CONTINUE SERIAL EXAMS. CONTINUE TO MOBILIZE TOLERATED.
--- NOTE | 2018-03-09 19:15 | P.PN ---
Date of Service: 03/09/18 (POD#6) S: PATIENT IN BED THIS MORNING HOLDING HANDS WITH WHILE WATCHING TV. NO COMPLAINTS. WAS QUITE PROUD THAT HE TOLD HER THIS MORNING WHEN HE ARRIVED THAT SHE WOULD WALK TODAY. O: VSS, NO HGB THIS AM, WAS 9.2 YESTERDAY INCREASED FROM DAY PRIOR. NV EXAM SHOWS CONTINUED DORSIFLEXION OF LEFT ANKLE AND TOES. SENSATION INTACT TO LIGHT TOUCH MEDIAL AND LATERAL THIGH AND LOWER LEG LLE. BANDAGE IS CLEAN DRY AND INTACT WITH PLAN TO BE CHANGED FOR NEW AQUA CELL BANDAGE PRIOR TO DISCHARGE TO [facility] TODAY. PATIENT ENCOURAGED TO LIFT LEGS BUT WEEK WITH LEFT UNTIL ENCOURAGED TO DO RIGHT LEG SEVERAL TIMES THEN DO LIFT ON LEFT. EASILY MOVES RIGHT THAN TENDS TO HELP WITH HANDS TO RAISE LEFT THIGH. THERAPY DESCRIBED MAXIMUM ASSIST FOR THE PATIENT TO AMBULATE 15 STEPS TO DOOR AND BACK. SHE WAS ABLE TO TRANSFER FROM WHEELCHAIR TO ARMCHAIR USING ROLLING WALKER TO PIVOT. PATIENT WITH PRIOR HOME USE OF NORCO 10 AND FENTANYL PATCHES IS MUCH MORE ALERT SINCE IV MORPHINE DISCONTINUED YESTERDAY. . A: POST OP DAY #6. PATIENT REPORTS SHE HAS CHOSEN [facility] FOR POST HOSPITAL CARE. P: PATIENT WILL BE TRANSFERRED TO [facility] VIA AMBULANCE WHERE PHYSICAL THERAPY WILL CONTINUE TO MOBILIZE TOLERATED WITH WEIGHTBEARING TOLERATED LEFT LOWER EXTREMITY USING WALKER AMBULATION. FOLLOW-UP MY OFFICE WILL BE IN 7 DAYS FOR POSSIBLE REMOVAL OF ALL OR MOST BECK. FOLLOW-UP BY DR. SEBASTIAN TO EVALUATE CONCERNS REGARDING FEMORAL NEUROPATHY WILL BE IN 2 WEEKS. AQUACEL BANDAGE IS TO BE CHANGED PRIOR TO DISCHARGE AND NOT DISTURBED UNTIL REMOVED IN MY OFFICE NEXT TUESDAY OR TUESDAY. NORCO 7.5/325 APAP PRESCRIBED ONE BY MOUTH EVERY 6 HOURS ONLY WHEN NECESSARY FOR PAIN,#50.
--- NOTE | 2018-03-10 02:49 | DS ---
Date of Discharge: 03/09/2018 Grade Recorder: Dr. Reynoso, Orthopedics; Dr. Guillermo with Neurology, Dr. Salinas with Cardiology. Procedures: On 03/03/[address] Reynoso insertion of unipolar cemented hip prosthesis, left hip prox imal femur fracture. Admitting Diagnoses: 1.Status post mechanical fall. 2.Hip fracture in left. 3.Chronic atrial fibrillation. 4.Chronic pain syndrome. 5.Essential hypertension. 6.Neurofibromatosis. Discharge Diagnoses: 1.Status post mechanical fall. 2.Left-sided hip fracture initial encounter, closed fracture, status post open reduction and interna l fixation. 3.Chronic atrial fibrillation, on Eliquis. 4.Acute blood loss anemia, likely postoperative, status post 1 unit PRBCs. 5.Chronic pain syndrome. 6.Essential hypertension. 7.Neurofibromatosis. Hospital Course: The patient is a 77-year-old female, comes in with mechanical fall after she slippe d and landed on her left side on the porch. The patient was found to have a left-sided hip fracture. She was seen by Dr. Salinas for cardiac clearance and given her history of AFib and being on Eliqui s. The patient's last dose of Eliquis was a night prior and therefore the patient was cleared for guaman rgery. Dr. Reynoso with Orthopedics was consulted to perform the procedure as mentioned above. The p atient did well postoperatively. She did seem to have some weakness and Dr. Guillermo with Neurology was consulted for possible left femoral entrapment for neuropathy after hip replacement surgery. He did add gabapentin as a trial to improve her symptoms and recommended inpatient rehab for 2 to 3 week s. He did recommend an EMG if the patient's symptoms progressed in terms of weakness at the hip on t he left for nerve conduction studies to distinguish between femoral neuropathy above or below the ing uinal ligament. The patient's symptoms did improve. She was working with PT, however, still was not able to completely get up. Her Burton catheter was discontinued. The patient did have some postoper ative anemia and required a blood transfusion. Her hemoglobin remained stable afterwards. Her white blood cell count normalized. She was restarted on her Eliquis and she was tolerating her medication s. Her urine culture did grow out Enterococcus faecalis which was sensitive to vancomycin, penicilli n, ampicillin. The patient was initially referred to inpatient rehab, however, was not accepted due to insurance reasons. The patient was then referred to [facility] and was accepted for longterm facility placement. The patient was then discharged to [facility] in a fair condition. Activity: As per rehab. Medications: As per medication reconciliation list. Followup: With orthopedic surgeon, Dr. Reynoso in 7 to 10 days for wound check. Follow up with neuro logist, Dr. Guillermo in 2 weeks for further evaluation of weakness in the left leg. Follow up with [facility] physician in 2 weeks. Return to ER for worsening condition. Diet: Heart healthy. Physical Examination: General: Awake, alert, oriented, in mild distress due to pain, elderly female. CV: S1, S2. No murmurs. Respiratory: Moving air well bilaterally. Abdomen: Soft, nontender, nondistended. Positive bowel sounds. Extremities: No clubbing, cyanosis, or edema. Neurologic: Nonfocal. Musculoskeletal: Left hip incision site clean, dry, intact. Some mild tenderness to palpation. No signs of infection. Total time spent discharging the patient was 37 minutes. MARIIA Voice ID: [id number] Report ID: [id number]
== END 2018-03-09 14:55 | DRG 470 ==
LOC: ER 11:34 → ERHOLD 14:00 → 2ND 14:54
PROVIDERS: ADMIT Family Medicine; ATTEND Family Medicine
PROC: 0SRS0J9 Replacement of Left Hip Joint, Femoral Surface with Synthetic Substitute, Cemented, Open Approach (ICD-10-PCS; principal; 2018-03-03 12:00)
PROC: 30233N1 Transfusion of Nonautologous Red Blood Cells into Peripheral Vein, Percutaneous Approach (ICD-10-PCS; 2018-03-07)
DX: S72.012A Unspecified intracapsular fracture of left femur, initial encounter for closed fracture (principal); M96.89 Other intraoperative and postprocedural complications and disorders of the musculoskeletal system; D62 Acute posthemorrhagic anemia; N39.0 Urinary tract infection, site not specified; W01.0XXA Fall on same level from slipping, tripping and stumbling without subsequent striking against object, initial encounter; Y93.01 Activity, walking, marching and hiking; Y92.019 Unspecified place in single-family (private) house as the place of occurrence of the external cause; Y65.8 Other specified misadventures during surgical and medical care; Y79.3 Surgical instruments, materials and orthopedic devices (including sutures) associated with adverse incidents; Y92.234 Operating room of hospital as the place of occurrence of the external cause; I48.2 Chronic atrial fibrillation; Z79.01 Long term (current) use of anticoagulants; G89.4 Chronic pain syndrome; I10 Essential (primary) hypertension; B95.2 Enterococcus as the cause of diseases classified elsewhere; Q85.02 Neurofibromatosis, type 2; M19.90 Unspecified osteoarthritis, unspecified site; D72.829 Elevated white blood cell count, unspecified
CPT/HCPCS: 36415; 51702; 71045; 72170; 80048; 80053; 81003; 81015; 83735; 84100; 84132; 85014; 85018; 85025; 85610; 85730; 86850; 86900; 86901; 87077; 87086; 87088; 87186; 88305; 88311; 90670; 93005; 96374; 97163; 99285; G0009; J0690; J1170; J2001; J2175; J2250; J2270; J2370; J2405; J3010; J7030; P9016

== ENCOUNTER 2019-01-16 07:49 | Day surgery (SDC) | payer OTHER, MEDICARE ==
[2019-01-15 15:44] LABS: Absolute Lymphocytes (CBC) 1.5 K/uL (0.7-4.9); Basophils % 0.9 % (0-1.3); Hematocrit 38.8 % (36.0-45.0); Lymphocytes % 21.2 % (15.3-44.8); MPV 8.8 fL (7.6-11.3); RBC Red Blood Cell Count 4.43 M/uL (3.86-4.86)
[2019-01-15 15:59] LABS: Potassium 3.8 mmol/L (3.5-5.1)
--- NOTE | 2019-01-15 17:17 | RAD REPORT ---
EXAM DESCRIPTION: RAD - Chest Pa And Lat (2 Views) - 01/15/2019 4:24 pm CLINICAL HISTORY: Preop chest, soft tissue mass removal COMPARISON: February 2018 TECHNIQUE: PA and lateral views of the chest were obtained. FINDINGS: The lungs are fibrotic. Interstitial pattern is not substantially different from compariso n. No failure or volume overload. Heart size is normal and central vasculature is within normal almonte its. No pleural effusion or pneumothorax seen. No acute bony finding noted. No aortic abnormality. IMPRESSION: Chronic interstitial lung disease similar to comparison. No acute finding.
--- NOTE | 2019-01-16 07:48 | EKG ---
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
--- OUTSIDE RECORDS SUMMARY | 2019-01-16 07:52 | XMS REPORT ---
:1940 Author Organization e[employer] Care Team Providers Name Role Phone Eligio Reynoso Provider Role Unavailable Allergies, Adverse Reactions, Alerts Substance Reaction Event Type N.K.D.A. Info Not Available Non Drug Allergy Problems Problem Type Condition Code Onset Dates Condition Status Assessment Left sided sciatica M54.32 Active Problem Left sided sciatica M54.32 Active Problem Pain in left hip M25.552 Active Problem Left sciatic nerve pain M54.32 Active Assessment Pain in left hip M25.552 Active Assessment Unspecified fracture of head of S72.052D Active left femur, subsequent encounter for closed fracture with routine healing Problem Unspecified fracture of head of S72.052D Active left femur, subsequent encounter for closed fracture with routine healing Medications Medication Code System Code Instructions Start Date End Date Status Dosage Eliquis 5 mg NDC 0 [place] [address] Active not defined 1- Fentanyl [facility] [address] Active not defined 6- Results No Known Results Summary Purpose eClinicalWorks Submission
[2019-01-16] MEDS ORDERED: Ringers Lactate 1,000 ML IV ONE (07:59)
[2019-01-16] MEDS ORDERED: CEFAZOLIN/SWI 1gm 1 GM/10 ML SYR ONE (08:55)
[2019-01-16] MEDS ORDERED: FENTANYL CITR 100 MCG/2 ML ONE (09:08)
[2019-01-16] MEDS ORDERED: PROPOFOL 200 MG/20 ML VIAL IV ONE (09:08)
[2019-01-16] MEDS ORDERED: LIDOCAINE 2% MPF 5 ML VIAL ONE (09:08)
[2019-01-16] MEDS ORDERED: MIDAZOLAM HCL 2 MG/2 ML INJ ONE (09:08)
[2019-01-16 13:21] VITALS: O2SAT 99
[2019-01-16 13:23] VITALS: BP 138/72; TEMP 98
--- NOTE | 2019-01-17 00:28 | OP ---
Date of Procedure: 01/16/2019 Surgeon: Jewel Downey MD Preoperative Diagnosis: Infected mass, left proximal forearm/elbow. Postoperative Diagnosis: Infected mass, left proximal forearm/elbow. Procedure: Excisional biopsy of infected subcutaneous mass of the left proximal forearm, 5 x 5 cm. Anesthesia: General plus local. Indications: This is the case of a 78-year-old patient with multiple neurofibromatosis lesion, but n ow she has a new lesion that is different from the previous ones. She is having purulent discharge c oming from the area. She has been on antibiotics for few days, but is not improving. She claimed th is is not one of the masses she has one from neurofibromatosis and I agreed with her. She gets some purulent discharge coming from the area and despite antibiotics, it is not improving. She wants that mass excised. The benefits, alternatives, and risks of excision fully explained, which include but are not limited to infection, bleeding, damage to adjacent structures as complication, nonhealing wou nd, CT, and even . She also understands this may not relieve any symptoms. She might need more than one surgical intervention. She may require wound care. The area of concern was marked by me a nd the patient in the holding room. Description Of Procedure: The patient was brought to the operating room, placed in supine position. Anesthesia was done without complication. Left arm and elbow were prepped and draped in the usual s terile fashion, the proximal forearm, which is below the elbow. A wedge incision was made in the ski n all the way down to subcutaneous tissue. The pus was obtained culture. The area was irrigated. T he mass was excised and the area was covered with wet-to-dry dressing. Patient tolerated the procedu re well. Patient was sent to recovery in stable condition. Specimen sent to the pathologist. Disposition: Home. Activity: As tolerated. No heavy lifting. Followup: Follow up in my office in 1 week. Call for appointment [phone]. May clean the area with soap and water and use Bactroban ointment daily. FREYA/OBDULIA Voice ID: [id number] Report ID: [id number]
== END 2019-01-16 12:40 | disposition home or self-care (01) ==
LOC: OR 07:49
PROVIDERS: ATTEND Surgery
PROC: 0JBH0ZZ Excision of Left Lower Arm Subcutaneous Tissue and Fascia, Open Approach (ICD-10-PCS; principal; 2019-01-16 09:00)
DX: L72.0 Epidermal cyst (principal); I10 Essential (primary) hypertension; I48.91 Unspecified atrial fibrillation; E07.9 Disorder of thyroid, unspecified; I51.9 Heart disease, unspecified; Z79.82 Long term (current) use of aspirin; Z79.899 Other long term (current) drug therapy; Z80.1 Family history of malignant neoplasm of trachea, bronchus and lung; Z82.49 Family history of ischemic heart disease and other diseases of the circulatory system
CPT/HCPCS: 93005; 85025; 80048; 36415; 88304; 71046; 11406; J2704; J3010; J0690; 88305; J2250

== ENCOUNTER 2022-01-11 12:23 | Emergency (ER) | payer OTHER, MEDICARE ==
--- OUTSIDE RECORDS SUMMARY | 2022-01-11 12:25 | XMS REPORT | Continuity of Care Document ---
:1940 Author Organization [facility] t Address [address] [place] [address] Care Team Providers Name Role Phone Unavailable Unavailable Unavailable Problems Condition Condition Condition Status Onset Resolution Last Treating Co mments Source Name Details Category Date Date Treatment Clinician Date Left Left Problem Active Common sciatic sciatic Spirit nerve pain nerve pain - [facility] Pain in Pain in Diagnosis Active Commo n left hip left hip [facility] Unspecifie Unspecifie Problem Active C ommon d fracture d fracture Sp jovanni of head of of head of - [facility] left left St femur, femur, [facility] subsequent subsequent Hi dical encounter encounter Cent [facility] for closed for closed fracture fracture with with routine routine healing healing Allergies, Adverse Reactions, Alerts This patient has no known allergies or adverse reactions. Medications Ordered Filled Start Stop Current Ordering Indication Dosage Frequency Signature Comments Components Source Medication Medication Date Date Medication? Clinician (SIG) Name Name Eliquis 5 Eliquis 5 Yes Eligio not Com mon mg mg Reynoso defined [facility] Thurman Thurman Yes Eligio not Common Reynoso defined [facility] Fentanyl Fentanyl Yes Eligio not Commo n Reynoso defined [facility] Procedures This patient has no known procedures. Encounters Start End Encounter Admission Attending Care Care Encounter Source Date/Time Date/Time Type Type Clinicians Facility Department ID 2018-06-28 2018-06-28 [id number] Common 10:30:00 10:30:00 [facility] Results This patient has no known results.
[2022-01-11] MEDS ORDERED: FENTANYL CITR 100 MCG/2 ML ONE (13:24)
[2022-01-11 14:14] LABS: Urine Blood Negative (Negative); Urine Glucose Negative (Negative); Urine Protein Negative (Negative); Urine Specific Gravity 1.015 (1.005-1.030)
--- NOTE | 2022-01-11 14:29 | RAD REPORT ---
EXAM DESCRIPTION: RAD - Hip Left 2 View - 01/11/2022 2:03 pm CLINICAL HISTORY: PAIN COMPARISON: Hip Left 1 View dated 03/03/2018; Hip Left 2 View dated 03/01/2018 FINDINGS/IMPRESSION: No acute fracture. No malalignment. No significant focal degenerative changes. Left total hip arthroplasty. Fusion hardware in the lower spine.
--- NOTE | 2022-01-11 14:29 | RAD REPORT ---
EXAM DESCRIPTION: RAD - Pelvis - 01/11/2022 2:03 pm CLINICAL HISTORY: PAIN COMPARISON: Pelvis dated 03/03/2018 FINDINGS/IMPRESSION: No acute fracture. No malalignment. Status post left total hip arthroplasty. Fu audrey hardware in the lumbar spine.
--- NOTE | 2022-01-11 17:04 | RAD REPORT ---
EXAM DESCRIPTION: CTAbdomen Pelvis W Contrast - 01/11/2022 4:36 pm CLINICAL HISTORY: pain COMPARISON: No comparisons TECHNIQUE: CT of the abdomen and pelvis was performed. All CT scans are performed using dose optimization technique as appropriate and may include automated exposure control or mA/KV adjustment according to patient size. FINDINGS: Lower chest: No acute abnormality. Liver: No acute abnormality or suspicious lesions. Biliary: Intrahepatic and extrahepatic biliary ductal dilatation may be related to the postcholecyste ctomy state. Stomach: No significant focal abnormality. Duodenum: No significant focal abnormality. Pancreas: No significant abnormality. Spleen: No significant abnormality. Adrenal: Bilateral benign fat containing adrenal lesions consistent with myelolipomas. Kidney/ureter: No hydronephrosis. No renal calculi. Retroperitoneum: No retroperitoneal adenopathy. Vascular: No aneurysm. Bowel: No significant focal abnormality. Peritoneum: No ascites or free air. Ventral abdominal wall laxity. Bladder: Grossly unremarkable. Reproductive: No adnexal masses. Hysterectomy. Bones: No acute fracture. Status post L4-5 fusion. Left hip arthroplasty is appears intact. Other: n/a IMPRESSION: No acute intra-abdominal or pelvic finding. Incidental findings as noted above.
[2022-01-11 17:15] LABS: Absolute Lymphocytes (CBC) 1.1 K/uL (0.7-4.9); Hematocrit 38.8 % (36.0-45.0); Lymphocytes % 17.5 % (15.3-44.8); MCV 89.8 fL (80-100); MPV 9.2 fL (7.6-11.3); RBC Red Blood Cell Count 4.32 M/uL (3.86-4.86)
[2022-01-11 17:19] LABS: Albumin 3.6 g/dL (3.4-5.0); Bilirubin Total 0.7 mg/dL (0.2-1.0); Magnesium 2.2 mg/dL (1.8-2.4); Potassium 3.6 mmol/L (3.5-5.1)
[2022-01-11 17:23] LABS: Urine Bacteria <20 /HPF (<20); Urine RBC <5 /HPF (None Seen)
--- NOTE | 2022-01-11 17:44 | ER ---
Nurse's Notes [facility] Name: Majo Causey Age: 81 yrs Sex: Female : 1940 Arrival Date: 01/11/2022 Time: 12:25 Bed 14 Private MD: Diagnosis: Pain in left hip;Other chronic pain Presentation: 01/11 12:26 Chief complaint: EMS states: Left hip pain since yesterday, no fall, no shortening. jl7 Coronavirus screen: At this time, the client does not indicate any symptoms associated with coronavirus-19. Ebola Screen: No symptoms or risks identified at this time. Risk Assessment: Do you want to hurt yourself or someone else? Patient reports no desire to harm self or others. Onset of symptoms was January 10, 2022. Care prior to arrival: Medication(s) given: 1G IV Tylenol IV initiated. 20 GA, in the left antecubital area. 12:26 Method Of Arrival: EMS: [facility] 12:26 Acuity: JAGRUTI 3 [facility] 12:54 Initial Sepsis Screen: Does the patient meet any 2 criteria? No. Patient's initial [facility] sepsis screen is negative. Does the patient have a suspected source of infection? No. Patient's initial sepsis screen is negative. Triage Assessment: 12:28 General: Appears in no apparent distress. uncomfortable, Behavior is calm, cooperative, jl7 appropriate for age. Pain: Complains of pain in left hip Pain currently is 10 out of 10 on a pain scale. Historical: - Allergies: 12:28 No Known Allergies; jl7 - Home Meds: 12:28 carvedilol 6.25 mg Oral tab 1 tab 2 times per day [Active]; jl7 lisinopril-hydrochlorothiazide 20-12.5 mg Oral tab 1 tab once daily [Active]; furosemide 40 mg Oral tab 1 tab once daily [Active]; Eliquis 5 mg Oral tab 1 tab 2 times per day [Active]; gabapentin 300 mg Oral cap 1 cap 3 times per day [Active]; ropinirole 0.5 mg Oral tab 1 tab twice a day [Active]; duloxetine 60 mg Oral cpDR 1 cap once daily [Active]; [place] 10-325 mg Oral tab 1 tab every 4 hours [Active]; - PMHx: 12:28 Arthritis; Atrial Fib; Chronic pain; Hypertension; Congestive heart failure; jl7 - Immunization history:: Client reports having NOT received the Covid vaccine. - Social history:: Smoking status: Patient denies any tobacco usage or history of. Screenin:51 Abuse screen: Denies threats or abuse. Denies injuries from another. Nutritional jh6 screening: No deficits noted. Tuberculosis screening: No symptoms or risk factors identified. Fall Risk Secondary diagnosis (15 points) impaired mobility, IV access (20 points). Assessment: 12:52 General: Appears uncomfortable, Behavior is cooperative. Pain: Complains of pain in jh6 coccyx, left lower back and right lower back Pain currently is 10 out of 10 on a pain scale. Quality of pain is described as aching, sharp, Pain began Is continuous, Aggravated by increased activity, repositioning. 14:00 Reassessment: No changes from previously documented assessment. Patient and/or family jh6 updated on plan of care and expected duration. Pain level reassessed. daughter at bedside, waiting x ray results. 15:30 Reassessment: Patient and/or family updated on plan of care and expected duration. Pain jh6 level reassessed. Patient is alert, oriented x 3, equal unlabored respirations, skin warm/dry/pink. 15:30 General: states that pain meds helped a little but laying in the bed makes pain worse. jh6 daughter at bedside. . Pain: Pain currently is 6 out of 10 on a pain scale. 17:00 Reassessment: Patient and/or family updated on plan of care and expected duration. Pain jh6 level reassessed. 17:00 General: pts daughter states that she normally gets [place] 10 at this time of day and jh6 that she needs to take pain meds before going home. provider atvised. Pain: Pain currently is 8 out of 10 on a pain scale. 18:20 Reassessment: Patient and/or family updated on plan of care and expected duration. Pain jh6 level reassessed. Patient states feeling better. 18:20 General: pt able to stand and pivot to wheelchair with assistance. . Pain: Pain jh6 currently is 4 out of 10 on a pain scale. Quality of pain is described as aching, sharp. Vital Signs: 12:51 BP 132 / 58; Pulse 90; Resp 18; Temp 97.7(TE); Pulse Ox 99% on R/A; Weight 90.72 kg; jh6 Height 5 ft. 4 in. (162.56 cm); Pain 10/10; 14:30 BP 142 / 67; Pulse 72; Resp 17; Pulse Ox 97% ; Pain 6/10; jh6 16:00 BP 136 / 70; Pulse 76; Resp 18; Temp 97.6(TE); Pulse Ox 97% ; Pain 4/10; jh6 18:00 BP 140 / 66; Pulse 70; Resp 18; Pulse Ox 98% ; jh6 12:51 Body Mass Index 34.33 (90.72 kg, 162.56 cm) jh6 ED Course: 12:25 Patient arrived in ED. jl7 12:28 Triage completed. jl7 12:28 Arm band placed on right wrist. jl7 12:37 Nicole Mercedes, JOSÉ MIGUEL is Primary Nurse. jh6 12:40 Jaxson Peterson PA is PHCP. cp 12:40 Leander Goodwin MD is Attending Physician. cp 12:52 No provider procedures requiring assistance completed. Maintain EMS IV. Dressing jh6 intact. Good blood return noted. Site clean \T\ dry. Gauge \T\ site: 20g l fa. 12:53 Placed in gown. Bed in low position. Call light in reach. Side rails up X 1. jh6 13:33 X-ray(s) taken. jh6 14:05 XRAY Pelvis In Process Unspecified. EDMS 14:05 XRAY Hip LEFT 2 view In Process Unspecified. EDMS 14:18 Urine collected: straight cath specimen, clear, Amount Returned: 500mL. jh6 15:[address] Scan. jl7 16:37 CT Abd/Pelvis - IV Contrast Only In Process Unspecified. EDMS 17:43 Anthony Stevenson MD is Referral Physician. cp 18:51 IV discontinued, intact, bleeding controlled, No redness/swelling at site. Pressure jh6 dressing applied. Administered Medications: 13:20 Drug: fentaNYL (PF) 25 mcg Route: IVP; Site: left forearm; jh6 17:42 Drug: HYDROcodone-acetaminophen 10 mg-325 mg 1 tabs Route: PO; jh6 Medication: 12:54 VIS not applicable for this client. 6 Outcome: 17:44 Discharge ordered by . cp 18:50 Discharged to home via wheelchair. jh6 18:50 Condition: good 18:50 Discharge instructions given to patient, family, Instructed on discharge instructions, follow up and referral plans. Demonstrated understanding of instructions, follow-up care. 18:59 Patient left the ED. jh6 Signatures: Dispatcher [employer] EDMS Jaxson Peterson PA PA cp Leal, Jahala, RN RN jl7 Nicole Mercedes RN RN jh6
--- NOTE | 2022-01-11 17:45 | EDPHYS ---
Physician Documentation [facility] Name: Majo Causey Age: 81 yrs Sex: Female : 1940 Arrival Date: 01/11/2022 Time: 12:25 Bed 14 Private MD: ED Physician Leander Goodwin HPI: 01/11 13:05 This 81 yrs old Female presents to ER via EMS with complaints of Hip Pain. cp 13:05 The patient or guardian reports pain. cp 13:05 sustained from unknown reason, There is no obvious deformity, The patient is able to cp ambulate with assistance. The complaints affect the left hip. Onset: The symptoms/episode began/occurred yesterday. Associated signs and symptoms: Pertinent positives: abdominal pain, weakness, pain all over, Pertinent negatives: chest pain, dysuria, fever, incontinence, vomiting. 13:05 Severity of symptoms: in the emergency department the symptoms are unchanged, despite cp home interventions. Historical: - Allergies: 12:28 No Known Allergies; jl7 - Home Meds: 12:28 carvedilol 6.25 mg Oral tab 1 tab 2 times per day [Active]; jl7 lisinopril-hydrochlorothiazide 20-12.5 mg Oral tab 1 tab once daily [Active]; furosemide 40 mg Oral tab 1 tab once daily [Active]; Eliquis 5 mg Oral tab 1 tab 2 times per day [Active]; gabapentin 300 mg Oral cap 1 cap 3 times per day [Active]; ropinirole 0.5 mg Oral tab 1 tab twice a day [Active]; duloxetine 60 mg Oral cpDR 1 cap once daily [Active]; [place] 10-325 mg Oral tab 1 tab every 4 hours [Active]; - PMHx: 12:28 Arthritis; Atrial Fib; Chronic pain; Hypertension; Congestive heart failure; jl7 - Immunization history:: Client reports having NOT received the Covid vaccine. - Social history:: Smoking status: Patient denies any tobacco usage or history of. ROS: 13:10 Constitutional: Negative for body aches, chills, fever, poor PO intake. cp 13:10 Eyes: Negative for injury, pain, redness, and discharge. cp 13:10 ENT: Negative for drainage from ear(s), ear pain, sore throat, difficulty swallowing, difficulty handling secretions. 13:10 Cardiovascular: Negative for chest pain, edema, palpitations. 13:10 Respiratory: Negative for cough, shortness of breath, wheezing. 13:10 Abdomen/GI: Positive for abdominal pain, Negative for vomiting, diarrhea, constipation. 13:10 Back: Positive for pain at rest, pain with movement. 13:10 MS/extremity: Positive for pain, of the left hip, Negative for injury or acute deformity, decreased range of motion. 13:10 Skin: Negative for cellulitis, rash. 13:10 Neuro: Negative for altered mental status, dizziness, headache, numbness, syncope, general weakness. 13:10 All other systems are negative. Exam: 13:15 Constitutional: The patient appears in no acute distress, alert, awake, cp non-diaphoretic, non-toxic, well developed, well nourished, uncomfortable. 13:15 Head/Face: Normocephalic, atraumatic. cp 13:15 Eyes: Periorbital structures: appear normal, Conjunctiva: normal, no exudate, no injection, Sclera: no appreciated abnormality, Lids and lashes: appear normal, bilaterally. 13:15 ENT: External ear(s): are unremarkable, Nose: is normal, Mouth: Lips: moist, Oral mucosa: moist, Posterior pharynx: Airway: no evidence of obstruction, patent. 13:15 Neck: C-spine: vertebral tenderness, is not appreciated, crepitus, is not appreciated, ROM/movement: is normal, is supple, without pain, no range of motions limitations. 13:15 Chest/axilla: Inspection: normal. 13:15 Cardiovascular: Rate: normal, Rhythm: regular, Edema: is not appreciated, JVD: is not appreciated. 13:15 Respiratory: the patient does not display signs of respiratory distress, Respirations: normal, no use of accessory muscles, no retractions, labored breathing, is not present, Breath sounds: are clear throughout, no decreased breath sounds, no stridor, no wheezing. 13:15 Abdomen/GI: Inspection: abdomen appears normal, Bowel sounds: active, all quadrants, Palpation: soft, in all quadrants, mild abdominal tenderness, in the left upper quadrant and left lower quadrant, rebound tenderness, is not appreciated, involuntary guarding, is not appreciated. 13:15 Back: vertebral tenderness, is not appreciated. 13:15 Skin: cellulitis, is not appreciated, no rash present. 13:15 Neuro: Orientation: to person, place \T\ time. Mentation: able to follow commands, Motor: moves all fours, general weakness with no focal deficits, Sensation: is normal. Vital Signs: 12:51 BP 132 / 58; Pulse 90; Resp 18; Temp 97.7(TE); Pulse Ox 99% on R/A; Weight 90.72 kg; 6 Height 5 ft. 4 in. (162.56 cm); Pain 10/10; 14:30 BP 142 / 67; Pulse 72; Resp 17; Pulse Ox 97% ; Pain 6/10; jh6 16:00 BP 136 / 70; Pulse 76; Resp 18; Temp 97.6(TE); Pulse Ox 97% ; Pain 4/10; jh6 18:00 BP 140 / 66; Pulse 70; Resp 18; Pulse Ox 98% ; jh6 12:51 Body Mass Index 34.33 (90.72 kg, 162.56 cm) 6 MDM: 12:53 Patient medically screened. 14:00 Differential diagnosis: hip fracture, intertrochanteric fracture, femoral neck cp fracture, femoral shaft fracture, UTI, sepsis, chronic pain. 17:44 Data reviewed: vital signs, nurses notes, lab test result(s), radiologic studies, CT cp scan, plain films. 17:44 Counseling: I had a detailed discussion with the patient and/or guardian regarding: the cp historical points, exam findings, and any diagnostic results supporting the discharge/admit diagnosis, lab results, radiology results, to return to the emergency department if symptoms worsen or persist or if there are any questions or concerns that arise at home. Response to treatment: the patient's symptoms have markedly improved after treatment, and as a result, I will discharge patient. 01/11 13:12 Order name: Urine Microscopic Only; Complete Time: 17:43 cp 01/11 14:14 Order name: Urine Dipstick-Ancillary; Complete Time: 14:30 EDMS 01/11 14:30 Interpretation: Reviewed. 01/11 14:31 Order name: CBC with Diff; Complete Time: 17:21 cp 01/11 14:31 Order name: CMP; Complete Time: 17:21 cp 01/11 17:22 Interpretation: Normal except: NA 134; CO2 33; GLUC 130; BUN 19; GFR 62; AST 11. cp 01/11 14:31 Order name: Lipase; Complete Time: 17:21 cp 01/11 14:31 Order name: Magnesium; Complete Time: 17:21 cp 01/11 12:55 Order name: XRAY Pelvis; Complete Time: 15:00 cp 01/11 15:00 Interpretation: Report reviewed. cp 01/11 12:55 Order name: XRAY Hip LEFT 2 view; Complete Time: 15:00 cp 01/11 15:00 Interpretation: Report reviewed. cp 01/11 13:12 Order name: IV; Complete Time: 13:14 cp 01/11 13:12 Order name: Urine Dipstick-Ancillary (obtain specimen); Complete Time: 14:18 cp 01/11 14:31 Order name: Labs collected and sent; Complete Time: 14:35 cp 01/11 14:31 Order name: CT Abd/Pelvis - IV Contrast Only; Complete Time: 17:10 cp Administered Medications: 13:20 Drug: fentaNYL (PF) 25 mcg Route: IVP; Site: left forearm; [facility] 17:42 Drug: HYDROcodone-acetaminophen 10 mg-325 mg 1 tabs Route: PO; [facility] Disposition Summary: 01/11/22 17:44 Discharge Ordered Location: Home cp Problem: new cp Symptoms: have improved cp Condition: Stable cp Diagnosis - Pain in left hip cp - Other chronic pain cp Followup: cp - With: Anthony Stevenson MD - When: 2 - 3 days - Reason: hip pain Discharge Instructions: - Discharge Summary Sheet cp - Chronic Pain, Adult cp - Hip Pain cp Forms: - Medication Reconciliation Form cp - Thank You Letter cp - Antibiotic Education cp - Prescription Opioid Use cp Addendum: 01/12/2022 21:45 Co-signature as Attending Physician, Leander Goodwin MD. r n Signatures: Dispatcher [employer] Leander Mccollum MD MD rn Page, Corey, PA PA cp Dani Munoz RN RN jl7 Nicole Mercedes RN RN jh6
[2022-01-11] MEDS ORDERED: HYDROCODONE/APAP 10/325 TAB ONE (17:48)
[2022-01-11 21:01] VITALS: TEMP 97.6
[2022-01-11 21:03] VITALS: BP 140/66; O2SAT 98
== END 2022-01-11 18:59 | disposition home or self-care (01) ==
LOC: ER 12:23
DX: M25.552 Pain in left hip (principal); G89.29 Other chronic pain; I10 Essential (primary) hypertension; I48.91 Unspecified atrial fibrillation; Z79.01 Long term (current) use of anticoagulants; I50.9 Heart failure, unspecified
CPT/HCPCS: 85025; 36415; 83735; 83690; 80053; 74177; 72170; 73502; Q9967; J3010; 81003; 81015; 96374; 99284